=== PATIENT | female | born 1970 | race Caucasian/White ===

== ENCOUNTER 2016-04-24 19:51 | Emergency (ER) | payer BC ==
--- NOTE | 2016-04-24 19:52 | UC ---
Abdominal Pain Female HPI - HPI Summary HPI Summary: Not feeling well for several days, took amoxicillin for strep. Then a few days ago started with left low back pain. Today started with deep LLQ pain, cramping. No vomiting, no fever. Had a normal BM today, no blood in the stool. No urinary sxs. Pt with hx perforated diverticulum requiring 10 inches of bowel resected. Also s/p right oophorectomy and laminectomy and lap vira. Had recent colonoscopy with no areas identified as needing resection. Was advised by Dr. Carr whenever she feels that her diverticulitis is flaring, to get evaluated. - History of Current Complaint Stated Complaint: ABDOMINAL PAIN Time Seen by Provider: 04/24/16 19:51 Hx Obtained From: Patient, Family/Jewel Stringer - Hx Last Menstrual Period: 04/18/16 ?: No Onset/Duration: Gradual Onset, Lasting Days, Still Present Severity Initially: Moderate Severity Currently: Moderate Pain Intensity: 7 Pain Scale Used: 0-10 Numeric Location: Discrete At: LLQ Radiates: Yes Radiates to: Back Character: Cramping Aggravating Factor(s): Nothing Alleviating Factor(s): Nothing Associated Signs and Symptoms: Negative: Fever, Constipation, Blood in Stool, Urinary Symptoms, Nausea, Vomiting, Diarrhea Allergies/Adverse Reactions: Allergies Allergy/AdvReac Type Severity Reaction Status Date / Time Morphine AdvReac Severe Nausea And Verified 04/24/16 20:19 Vomiting Home Medications: Home Medications [id number] [Excedrin Extra Strength] 1 tab PO Q4H PRN [History Confirmed 04/24/16] PMH/Surg Hx/FS Hx/Imm Hx Endocrine History Of: Denies: Diabetes, Thyroid Disease Cardiovascular History Of: Denies: Cardiac Disorders, Hypertension, Pacemaker/ICD, Congestive Heart Failure Respiratory History Of: Reports: Asthma Denies: COPD GI/ History Of: Denies: Ulcer, Renal Disease Cancer History Of: Denies: Breast Cancer - Surgical History Surgical History: Yes Surgery Procedure, Year, and Place: RT OOPHERECTOMY. ILEOSTOMY reversed 01/06/13 ,BOWEL RESECTION 09/2012/LAP [facility]IR[facility]. microdiscectomy 01/17/2014 - Family History Known Family History: Negative: Respiratory Disease - Social History Occupation: Employed Full-time Lives: With Family Alcohol Use: Rare Substance Use Type: None Smoking Status (MU): Former Smoker Type: Cigarettes Amount Used/How Often: 1/2 PACK PER DAY Length of Time of Smoking/Using Tobacco: 5 YEARS Have You Smoked in the Last Year: No When Did the Patient Quit Smoking/Using Tobacco: 1994 - Immunization History Most Recent Influenza Vaccination: 2013 Most Recent Tetanus Shot: unknown Most Recent Pneumonia Vaccination: unknown Review of Systems Constitutional: Negative Skin: Negative Gastrointestinal: Abdominal Pain Genitourinary: Negative Musculoskeletal: Other: - left low back pain Neurological: Headache - this am, better now All Other Systems Reviewed And Are Negative: Yes Physical Exam Triage Information Reviewed: Yes Appearance: Well-Nourished, Ill-Appearing, Pain Distress Vital Signs Reviewed: Yes Eyes: Positive: Conjunctiva Clear ENT: Positive: Hearing grossly normal. Negative: Muffled/hoarse voice Neck: Positive: Supple Respiratory: Positive: No respiratory distress Cardiovascular: Positive: RRR, Pulses Normal, Brisk Capillary Refill Abdomen Description: Positive: No Organomegaly, Soft, Other: - tender LLQ and suprapubin. Negative: CVA Tenderness (R), CVA Tenderness (L), Distended, Guarding, Hepatomegaly, McBurney's Point Tenderness, Peritoneal Signs, Pulsatile Mass, Splenomegaly Bowel Sounds: Positive: Present Musculoskeletal: Positive: Strength Intact, ROM Intact Neurological: Positive: Alert, Muscle Tone Normal Psychological Exam: Normal Skin Exam: Normal Abd Pain Female Course/Dx - Course Course Of Treatment: discussed with pt and her . CT not available. Will start empiric therapy based on clinical diagnosis of diverticulitis, which is most consistent with pt's current and past hx. Pt will follow up with Dr. Carr if no improvement. She will go to the ED for any acute worsening. - Differential Dx/Diagnosis Differential Diagnosis: Bowel Obstruction, Constipation, Diverticulitis, Renal Colic Provider Diagnoses: abdominal pain. acute diverticulitis Discharge - Discharge Plan Condition: Stable Disposition: HOME Prescriptions: Ciprofloxacin TAB* [Cipro 500 MG TAB*] 500 mg PO BID #20 tab HYDROcodone/ACETAMIN 5-325 MG* [[place] 5-325 TAB*] 1 tab PO Q4H PRN #18 tab MDD 6 PRN Reason: Pain Metronidazole [Flagyl 500 MG TAB] 500 mg PO QID #40 tab Ondansetron ODT TAB* [Zofran 4 MG Odt TAB*] 4 mg PO Q6H PRN #20 tab.odt PRN Reason: Nausea Patient Education Materials: Diverticulitis (ED), Diverticulitis Diet (ED) Referrals: Yasmani Mathias DO [Primary Care Provider] - 2 Days Chito Carr MD [Medical Doctor] - 2 Days
[2016-04-24] MEDS ORDERED: Ciprofloxacin TAB* 500 MG PO ONE (20:45)
[2016-04-24] MEDS ORDERED: metroNIDAZOLE TAB* 250 MG PO ONE (20:45)
[2016-04-24] MEDS ORDERED: HYDROcodone/ACETAMIN 5-325 MG* 1 TAB PO ONE (20:46)
[2016-04-24 20:56] VITALS: BP 123/74
== END 2016-04-24 21:12 | disposition home or self-care (01) ==
LOC: UCCORT 19:51
DX: K57.92 Diverticulitis of intestine, part unspecified, without perforation or abscess without bleeding (principal); R10.32 Left lower quadrant pain; Z88.5 Allergy status to narcotic agent; Z87.891 Personal history of nicotine dependence
CPT/HCPCS: 99213; A9270-GY; G0463

== ENCOUNTER 2016-09-05 18:17 | Emergency (ER) | payer BC ==
[2016-09-05 19:33] VITALS: BP 106/69
--- NOTE | 2016-09-05 19:39 | UC ---
Complaint Female HPI - HPI Summary HPI Summary: Onset of bladder spasm and back pain 3 days ago, prompting use of cranberry/ mannose drink and high fluid intake. Developed a fever and myalgias yesterday, with increased back pain. Has taken 4 doses of macrodantin since Tuesday evening , from old rx from 2014. - History Of Current Complaint Chief Complaint: UCGU Stated Complaint: URINARY/FEVER Time Seen by Provider: 09/05/16 19:38 Hx Obtained From: Patient, Family/Mangle Press Catcher - here with her Hx Last Menstrual Period: 08/29/16 ?: No Onset/Duration: Gradual Onset, Lasting Days - 4 Timing: Intermittent, Lasting Hours - recurrent fever and myalgias and nausea. Severity Initially: Moderate Severity Currently: Moderate Character: Burning Aggravating Factor(s): Urination Alleviating Factor(s): Meds - ibuprofen helps with fever and myalgias Associated Signs And Symptoms: Positive: Back Pain Related Hx: Similar Episode/Dx as: - UTI - Risk Factors Ectopic Risk Factor: Negative Ovarian Torsion Risk Factor: Negative - Allergies/Home Medications Allergies/Adverse Reactions: Allergies Allergy/AdvReac Type Severity Reaction Status Date / Time Morphine AdvReac Severe Nausea And Verified 09/05/16 19:15 Vomiting Home Medications: Home Medications Acetaminophen TAB* [Tylenol TAB*] 650 mg PO Q4H PRN 09/05/16 [History Confirmed 09/05/16] Ibuprofen TAB* [Motrin TAB* 600 MG] 600 mg PO Q6H PRN 09/05/16 [History Confirmed 09/05/16] LevoCETirizine TAB (NF) [Xyzal TAB (NF)] 5 mg PO BEDTIME 09/05/16 [History Confirmed 09/05/16] Nitrofurantoin Macrocrystals* [Macrodantin*] 100 mg PO BID 09/05/16 [History Confirmed 09/05/16] PMH/Surg Hx/FS Hx/Imm Hx Previously Healthy: Yes - environmental allergies - Surgical History Surgical History: Yes Surgery Procedure, Year, and Place: RT OOPHERECTOMY. BOWEL RESECTION w/ ilectomy 09/2012, reversal 12/2012 , LAP YORDY. microdiscectomy 01/17/2014 - Family History Known Family History: Positive: Other - father of pancreatic cancer Mother living and healthy Negative: Respiratory Disease - Social History Occupation: Employed Full-time Lives: With Family Alcohol Use: Rare Substance Use Type: None Smoking Status (MU): Former Smoker Type: Cigarettes Amount Used/How Often: 1/2 PACK PER DAY Length of Time of Smoking/Using Tobacco: 5 YEARS Have You Smoked in the Last Year: No When Did the Patient Quit Smoking/Using Tobacco: 1994 - Immunization History Most Recent Influenza Vaccination: 2013 Most Recent Tetanus Shot: unknown Most Recent Pneumonia Vaccination: unknown Review of Systems Constitutional: Fever, Fatigue Skin: Negative Eyes: Negative ENT: Other - allergies controlled with xyzal Respiratory: Negative Cardiovascular: Negative Gastrointestinal: Other - normal stools, no abdominal pain Genitourinary: Dysuria, Urgency, Other - bladder spasms Motor: Negative Neurovascular: Negative Musculoskeletal: Myalgia, Other: - back pain Neurological: Negative Psychological: Negative All Other Systems Reviewed And Are Negative: Yes Physical Exam Triage Information Reviewed: Yes Appearance: Ill-Appearing, Pain Distress - mild Vital Signs: Initial Vital Signs Temp 100.0 F 09/05/16 19:17 Pulse 93 09/05/16 19:17 Resp 16 09/05/16 19:17 BP 106/69 09/05/16 19:17 Pulse Ox 99 09/05/16 19:17 Vital Signs Reviewed: Yes ENT: Positive: Pharynx normal, TMs normal Neck: Positive: Supple, Nontender, No Lymphadenopathy Respiratory: Positive: Lungs clear, Normal breath sounds Cardiovascular: Positive: RRR, No Murmur Abdomen Description: Positive: Nontender, No Organomegaly, CVA Tenderness (R), CVA Tenderness (L) - bilateral mild Musculoskeletal Exam: Normal Neurological: Positive: Alert, Muscle Tone Normal Psychological Exam: Normal Skin Exam: Normal Diagnostics - Laboratory Diagnostic Studies Completed/Ordered: UA esterase positive (has been taking antibiotics) Complaint Female Dx - Course Course Of Treatment: bactrim for treatment of UTI, suspected pyelonephritis - Differential Dx/Diagnosis Provider Diagnoses: UTI, possible pylenephritis. Discharge - Discharge Plan Condition: Stable Disposition: HOME Prescriptions: Sulfamethox/Trimethoprim DS* [Bactrim DS 800/160 TAB*] 1 tab PO BID #14 tab Patient Education Materials: Urinary Tract Infection in Women (ED) Referrals: Yasmani Mathias DO [Primary Care Provider] - Additional Instructions: If fever persists after 24 to 36 hours of antibiotic use, a change of antibiotics might be needed. Urine culture results will be available Tuesday afternoon or Tuesday.
[2016-09-05] MEDS ORDERED: Sulfamethox/Trimethoprim DS 800/160* TAB PO ONE ×2 (19:58→19:59)
== END 2016-09-05 20:14 | disposition home or self-care (01) ==
LOC: UCCORT 18:17
DX: N39.0 Urinary tract infection, site not specified (principal); Z87.440 Personal history of urinary (tract) infections; Z88.5 Allergy status to narcotic agent; Z87.891 Personal history of nicotine dependence
CPT/HCPCS: 81003; 87086; 99212; A9270-GY; G0463

== ENCOUNTER 2016-11-22 09:22 | Emergency (ER) | payer BC ==
--- NOTE | 2016-11-22 09:33 | UC ---
Complaint Female HPI - HPI Summary HPI Summary: 46 YEAR OLD FEMALE PRESENTS WITH [id number] OF URINARY FREQUENCY/URGENCY AND BURNING. - History Of Current Complaint Stated Complaint: URINARY Time Seen by Provider: 11/22/16 09:33 Hx Obtained From: Patient Hx Last Menstrual Period: 08/29/16 Onset/Duration: Sudden Onset Severity Initially: Moderate Severity Currently: Moderate - Allergies/Home Medications Allergies/Adverse Reactions: Allergies Allergy/AdvReac Type Severity Reaction Status Date / Time Morphine AdvReac Severe Nausea And Verified 11/22/16 09:40 Vomiting PMH/Surg Hx/FS Hx/Imm Hx Previously Healthy: Yes - Surgical History Surgical History: Yes Surgery Procedure, Year, and Place: RT OOPHERECTOMY. BOWEL RESECTION w/ ilectomy 09/2012, reversal 12/2012 , LAP YORDY. microdiscectomy 01/17/2014 - Family History Known Family History: Positive: None, Other - father of pancreatic cancer Mother living and healthy Negative: Respiratory Disease - Social History Alcohol Use: Rare Substance Use Type: None Smoking Status (MU): Former Smoker Type: Cigarettes Amount Used/How Often: 1/2 PACK PER DAY Length of Time of Smoking/Using Tobacco: 5 YEARS Have You Smoked in the Last Year: No When Did the Patient Quit Smoking/Using Tobacco: 1994 - Immunization History Most Recent Influenza Vaccination: 2013 Most Recent Tetanus Shot: unknown Most Recent Pneumonia Vaccination: unknown Review of Systems Constitutional: Negative Skin: Negative Eyes: Negative ENT: Negative Respiratory: Negative Cardiovascular: Negative Gastrointestinal: Negative Genitourinary: Negative, Frequency, Urgency Motor: Negative Neurovascular: Negative Musculoskeletal: Negative Neurological: Negative Psychological: Negative All Other Systems Reviewed And Are Negative: Yes Physical Exam Triage Information Reviewed: Yes Vital Signs Reviewed: Yes Eye Exam: Normal ENT Exam: Normal Dental Exam: Normal Neck exam: Normal Neck: Positive: 1 Respiratory Exam: Normal Cardiovascular Exam: Normal Abdominal Exam: Normal Musculoskeletal Exam: Normal Neurological Exam: Normal Psychological Exam: Normal Skin Exam: Normal Complaint Female Dx - Differential Dx/Diagnosis Provider Diagnoses: DYSURIA. URINARY FREQUNECY. URINARY URGENCY Discharge - Discharge Plan Condition: Stable Disposition: HOME Prescriptions: Sulfamethox/Trimethoprim DS* [Bactrim DS 800/160 TAB*] 1 tab PO BID #10 tab Patient Education Materials: Urinary Tract Infection in Women (ED) Referrals: Yasmani Mathias DO [Primary Care Provider] -
[2016-11-22 09:40] VITALS: BP 112/67
--- NOTE | 2016-11-25 08:07 | UC ---
Progress - Progress Note Progress Note: (+) UTI -- resistant to bactrim sensitive to macrobid -- start at this time sent to pharmacy recheck with PCP in 2 weeks
== END 2016-11-22 10:01 | disposition home or self-care (01) ==
LOC: UCCORT 09:22
DX: N39.0 Urinary tract infection, site not specified (principal); Z88.5 Allergy status to narcotic agent; Z87.891 Personal history of nicotine dependence
CPT/HCPCS: 81003; 87077; 87086; 87186; 99212; G0463

== ENCOUNTER → 2016-11-27 08:40 | Emergency (ER) | payer BC ==
[~2016-11-27 08:40] MED LIST: Acetaminophen TAB* 325 MG PO ONE; Ketorolac INJ* 30 MG/ML 1 ML VIAL IV ONE; Ketorolac INJ* 30 MG/ML 1 ML VIAL ONE; NS 0.9% 1000 ML* 1,000 ML IV ONE; Ondansetron INJ* 2 MG/ML VIAL IV ONE; Ondansetron INJ* 2 MG/ML VIAL ONE; cefTRIAXone VIAL(*) 1,000 MG in NS 0.9% 50 ML* 50 ML IVPB ONE
[2016-11-27 09:02] LABS: Urine Bilirubin Negative (Negative); Urine Glucose Negative (Negative); Urine Nitrite Negative (Negative)
[2016-11-27 09:45] LABS: Hematocrit 39 % (35-47); Hemoglobin 13.6 g/dl (12.0-16.0); Mean Corpuscular HGB Conc 35 g/dl (31-36); Mean Corpuscular Hemoglobin 31 pg (27-31); Mean Corpuscular Volume 90 fL (80-97); Mean Platelet Volume 8 um3 (7.4-10.4); Red Blood Count 4.36 10^6/ul (4.0-5.4); Red Cell Distribution Width 13 % (10.5-15); White Blood Count 9.8 10^3/ul (3.5-10.8)
--- NOTE | 2016-11-27 10:04 | RAD ---
CLINICAL HISTORY: Left flank pain. Relevant surgical history includes right oopherectomy, bowel resection and cholecystectomy. COMPARISON: Most recent comparison CT is dated April 21, 2012 TECHNIQUE: Noncontrast CT examination of the abdomen and pelvis from the lung bases through the initial tuberosities. FINDINGS: VISUALIZED LUNG BASES: The visualized lung bases are grossly clear. There is no pleural effusion. ABDOMEN AND PELVIS: Evaluation of the solid organs and vasculature is limited without intravenous contrast. The liver, spleen, pancreas and adrenal glands are grossly normal in appearance. The gallbladder is surgically absent. The kidneys are normal in appearance without focal mass, calcification or signs of hydronephrosis. The small and large bowel are not distended.The patient's normal appendix is identified in the right lower quadrant with gas in the lumen measuring 5 mm in diameter (coronal image 45). There are diverticula throughout the length of the colon but no definite wall thickening or pericolonic inflammatory changes characteristic of acute diverticulitis. There is no gross retroperitoneal or mesenteric lymphadenopathy. At the left hemipelvis there is a 3.4 cm fluid density structure most consistent with a follicle in a woman of this age. The abdominal aorta and iliac arteries are normal in course and diameter. There are no sinister bone lesions. IMPRESSION: 1. No renal calculi or hydronephrosis identified. 2. Diverticulosis without acute inflammatory changes characteristic of diverticulitis (within the limitations of a noncontrast enhanced CT examination). 3. At the left hemipelvis there is a 3.4 cm fluid density structure most consistent with a dominant ovarian follicle in a premenopausal woman. Further characterization could be made with pelvic ultrasound if clinically warranted.
[2016-11-27 10:10] LABS: ALT 209 U/L (7-52); AST 221 U/L (13-39); Alkaline Phosphatase 92 U/L (34-104); Anion Gap 7 mmol/L (2-11); BUN/Creatinine Ratio 14.8 (8-20); Blood Urea Nitrogen 9 mg/dL (6-24); C Reactive Protein 61.89 mg/L (< 5.00); CO2 Carbon Dioxide 22 mmol/L (22-32); Calcium 8.9 mg/dL (8.6-10.3); Chloride 103 mmol/L (101-111); EGFR Non-African American 106.5 (>60); Globulin 2.7 g/dL (2-4); Glucose 108 mg/dL (70-100); Lipase 33 U/L (11.0-82.0); Potassium 3.6 mmol/L (3.5-5.0); Sodium 132 mmol/L (133-145); Total Protein 6.7 g/dL (6.4-8.9)
[2016-11-27 10:57] VITALS: BP 106/64
--- NOTE | 2016-11-28 08:26 | ED ---
Sandeep José Nikita, scribed for Austin Boone MD on 11/27/16 at 0912 . Complex/Multi-Sys Presentation - HPI Summary HPI Summary: This patient is a 46 year old F presenting to ED with a chief complaint of multiple symptoms since 11/21/16. Pt went to Urgent Care and was given Bactrum. 2 days ago, pt felt horrible but felt improved yesterday. The CC is described as constant but waxing and waning and feeling spasmy during urination (during onset). The patient rates the pain 6/10 in severity. Symptoms aggravated by nothing. Symptoms alleviated by nothing. Patient reports nausea, vomiting, shaking, chills, her "skin hurts", groin pain, L-sided back pain, fever, and diarrhea. - History Of Current Complaint Chief Complaint: EDFever Time Seen by Provider: 11/27/16 08:47 Hx Obtained From: Patient Onset/Duration: Sudden Onset, Lasting Days - 6 days ago, Still Present Timing: Constant - waxing and waning Severity Currently: Moderate Severity Initially: Moderate Location: Pain At: - L-sided back pain, groin pain Aggravating Factor(s): nothing Alleviating Factor(s): nothing Associated Signs And Symptoms: Positive: Other - Patient reports nausea, vomiting, shaking, chills, her "skin hurts", groin pain, L-sided back pain, fever, and diarrhea. - Allergies/Home Medications Allergies/Adverse Reactions: Allergies Allergy/AdvReac Type Severity Reaction Status Date / Time Morphine AdvReac Severe Nausea And Verified 11/22/16 09:40 Vomiting PMH/Surg Hx/FS Hx/Imm Hx Endocrine/Hematology History: Denies: Hx Diabetes, Hx Systemic Lupus Erythematosus, Hx Thyroid Disease Cardiovascular History: Denies: Hx Congestive Heart Failure, Hx Hypertension, Hx Pacemaker/ICD Respiratory History: Reports: Hx Asthma Denies: Hx Chronic Obstructive Pulmonary Disease (COPD) GI History: Reports: Other GI Disorders - DIVERTICULITIS Denies: Hx Ulcer History: Reports: Other Problems/Disorders - HX OF UTI'S W/NO REOCCURANCE IN YEARS Denies: Hx Dialysis, Hx Renal Disease Musculoskeletal History: Reports: Hx Back Problems Denies: Hx Rheumatoid Arthritis Sensory History: Reports: Hx Contacts or Glasses Denies: Hx Hearing Aid Opthamlomology History: Reports: Hx Contacts or Glasses Neurological History: Reports: Other Neuro Impairments/Disorders - PAIN CLINIC PT Psychiatric History: Denies: Hx Panic Disorder - Cancer History Hx Chemotherapy: No Hx Radiation Therapy: No - Surgical History Surgery Procedure, Year, and Place: RT OOPHERECTOMY. BOWEL RESECTION w/ ilectomy 09/2012, reversal 12/2012 , LAP YORDY. microdiscectomy 01/17/2014 Hx Anesthesia Reactions: No Infectious Disease History: No Infectious Disease History: Reports: Hx Shingles Denies: Hx Clostridium Difficile, Hx Hepatitis, Hx Human Immunodeficiency Virus (HIV), Hx of Known/Suspected MRSA, Hx Tuberculosis, Hx Known/Suspected VRE , Hx Known/Suspected VRSA, History Other Infectious Disease, Traveled Outside the [place] in Last 30 Days - Family History Known Family History: Positive: Other - father of pancreatic cancer Mother living and healthy Negative: Respiratory Disease - Social History Alcohol Use: Rare Hx Substance Use: No Substance Use Type: Reports: None Hx Tobacco Use: No Smoking Status (MU): Former Smoker Type: Cigarettes Amount Used/How Often: 1/2 PACK PER DAY Length of Time of Smoking/Using Tobacco: 5 YEARS Have You Smoked in the Last Year: No Review of Systems Positive: Fever, Chills, Other - shaking Positive: Vomiting, Diarrhea, Nausea Positive: Other - groin pain, L-sided back pain Positive: Other - her "skin hurts" All Other Systems Reviewed And Are Negative: Yes Physical Exam - Summary Physical Exam Summary: GENERAL: Patient is a well-developed and dehydrated FEMALE who is lying comfortable in the stretcher. Patient is not in any acute respiratory distress. Pt is febrile. HEAD AND FACE: No signs of trauma. ~No ecchymosis, hematomas or skull depressions. No sinus tenderness. EYES: PERRLA, EOMI x 2, No injected conjunctiva, no nystagmus. EARS: Hearing grossly intact. Ear canals and tympanic membranes are within normal limits. MOUTH: Oropharynx within normal limits. NECK: Supple, trachea is midline, no adenopathy, no JVD, no carotid bruit, no c- spine tenderness, neck with full ROM. CHEST: Symmetric, no tenderness at palpation LUNGS: Clear to auscultation bilaterally. No wheezing or crackles. CVS: Regular rate and rhythm, S1 and S2 present, no murmurs or gallops appreciated. ABDOMEN: Soft, non-tender. No signs of distention. No rebound no guarding, and no masses palpated. Bowel sounds are normal. Positive left CVA tenderness. EXTREMITIES: FROM in all major joints, no edema, no cyanosis or clubbing. NEURO: Alert and oriented x 3. No acute neurological deficits. Speech is normal and follows commands. SKIN: Dry and warm Triage Information Reviewed: Yes Vital Signs On Initial Exam: Initial Vitals Temp Pulse Resp BP Pulse Ox 98.9 F 112 20 126/74 98 11/27/16 08:46 11/27/16 08:46 11/27/16 08:46 11/27/16 08:46 11/27/16 08:46 Vital Signs Reviewed: Yes - [place] Coma Scale Coma Scale Total: 15 Diagnostics - Vital Signs Vital Signs Temp Pulse Resp BP Pulse Ox 11/27/16 08:46 98.9 F 112 20 126/74 98 - Laboratory Lab Results: Lab Results 11/27/16 Range/Units 08:50 Urine Color Yellow Urine Appearance Clear Urine pH 5.0 (5-9) Ur Specific [place] 1.016 (1.010-1.030) Urine Protein Negative (Negative) Urine Ketones Negative (Negative) Urine Blood Negative (Negative) Urine Nitrate Negative (Negative) Urine Bilirubin Negative (Negative) Urine Urobilinogen Negative (Negative) Ur Leukocyte Esterase Negative (Negative) Urine Glucose Negative (Negative) Result Diagrams: 11/27/16 09:30 11/27/16 09:30 Lab Statement: Any lab studies that have been ordered have been reviewed, and results considered in the medical decision making process. - CT Abd/Pel CT CT Interpretation Completed By: Radiologist - 1. No renal calculi or hydronephrosis identified. 2. Diverticulosis without acute inflammatory changes characteristic of diverticulitis (within the limitations of a noncontrast enhanced CT examination). 3. At the left hemipelvis there is a 3.4 cm fluid density structure most consistent with a dominant ovarian follicle in a premenopausal woman. Further characterization could be made with pelvic ultrasound if clinically warranted. ED physician has reviewed this radiology report and agrees. Re-Evaluation - Re-Evaluation First Eval Re-Evaluation Time: 11:31 Change: Improved Comment: The pt feels better; has no pain or nausea. Pt is hungry. Discussed with pt about discharge plan. Complex Multi-Symp Course/Dx Assessment/Plan: This patient is a 46 year old F presenting to ED with a chief complaint of multiple symptoms since 11/21/16. Pt went to Urgent Care and was given Bactrum. 2 days ago, pt felt horrible but felt improved yesterday. The CC is described as constant but waxing and waning and feeling spasmy during urination (during onset). The patient rates the pain 6/10 in severity. Symptoms aggravated by nothing. Symptoms alleviated by nothing. Patient reports nausea, vomiting, shaking, chills, her skin hurts, groin pain, L-sided back pain, fever, and diarrhea. Abd/Pel CT reveals 1. No renal calculi or hydronephrosis identified. 2. Diverticulosis without acute inflammatory changes characteristic of diverticulitis (within the limitations of a noncontrast enhanced CT examination). 3. At the left hemipelvis there is a 3.4 cm fluid density structure most consistent with a dominant ovarian follicle in a premenopausal woman. Further characterization could be made with pelvic ultrasound if clinically warranted. ED physician has reviewed this radiology report and agrees. Blood work is without significant abnormalities except sodium of 132, AST of 221, ALT of 209, and CRP of 61. Urinalysis is negative for UTI. In the ED course pt was given IV fluids. Pt was given toradol for fever, and rocephin since the pt has been dealing with a urine infection. I the ED the pt did not show a UTI because the pt has been talking bactrum and nitrofurantoin. I believe that the pts elevated LFT are secondary to bactrum. However the pt is not taking bactrum any longer. So we will follow up with PCP to check for improvement of LFTs. I did an abdominal/pelvic CT to rule out kidney stones since the pt was having L flank pain. CT is negative for a kidney stone. These medications are taken for sensitivities. The pt is sensitive for rocephin, other IV medications, nitrofurantoin, so the best medication will be Alimentum. Therefore, since the pt is feeling better, I will discharge the pt with Alimentum and f/u with PCP. The pt is hemodynamically stable, alert and oriented x3. She was advised to return to the ED if she develops fever, N/V, increased abdominal or flank pain. We will have to rule out pyelonephritis. Also , she was strongly advised to f/u with PCP for increased liver function test. - Diagnoses Differential Diagnoses/HQI/PQRI: Urinary Tract Infection, Other - Kidney stone, Diverticulitis, pancreatitis Provider Diagnoses: UTI (urinary tract infection) Discharge - Discharge Plan Condition: Stable Disposition: HOME Prescriptions: Amoxicillin/Clavulanate TAB* [Augmentin TAB 875*] 875 mg PO BID #20 tab Patient Education Materials: Urinary Tract Infection in Women (ED) Referrals: Yasmani Mathias DO [Primary Care Provider] - 3 Days The documentation as recorded by the Sandeep oh Nikita accurately reflects the service I personally performed and the decisions made by , Austin Boone MD.
== END | disposition home or self-care (01) ==
LOC: ED 08:40
DX: N39.0 Urinary tract infection, site not specified (principal); Z32.02 Encounter for pregnancy test, result negative; R11.2 Nausea with vomiting, unspecified; R25.1 Tremor, unspecified; R50.9 Fever, unspecified; R19.7 Diarrhea, unspecified; J45.909 Unspecified asthma, uncomplicated; Z87.440 Personal history of urinary (tract) infections; Z88.5 Allergy status to narcotic agent; Z87.891 Personal history of nicotine dependence
CPT/HCPCS: 36415; 74176; 80053; 81003; 83605; 83690; 84702; 85025; 86140; 87040; 96365; 96375; 99282; A9270-GY; J0696; J1885; J2405

== ENCOUNTER 2017-03-08 16:17 | Emergency (ER) | payer BC ==
[2017-03-08 17:57] VITALS: BP 111/83
--- NOTE | 2017-03-08 18:51 | UC ---
Skin Complaint HPI - HPI Summary HPI Summary: 46 y/o female present to the urgent care c/o rash in her Rt rib area, under her breasr and around mid back taht itches and tingle sensation w/ mild pain since . Pt reports she just recovered from flu like symptoms that ended last week. Pain is 7/10. Pt denies fever, SOB, chest pain, abdominal pain, N/V/D. She has not taking anything to alleviate symptoms. - History of Current Complaint Chief Complaint: UCSkin Time Seen by Provider: 03/08/17 18:36 Stated Complaint: SKIN COMPLAINT Hx Obtained From: Patient Hx Last Menstrual Period: 02/07/17 ?: No Onset/Duration: Gradual Onset, Lasting Days - 2 days, Still Present Skin Exposure Onset/Duration: Days Ago - 2 days Timing: Constant Onset Severity: Mild Current Severity: Moderate Pain Intensity: 7 Pain Scale Used: 0-10 Numeric Location: Discrete - mid lateral side of back Character: Pruritus, Redness, Painful Aggravating Factor(s): Touch Alleviating Factor(s): Nothing Associated Signs & Symptoms: Positive: Tenderness. Negative: Nausea, Vomiting, Numbness, Fever, Chills Similar Episode/Dx as: shingles - Allergy/Home Medications Allergies/Adverse Reactions: Allergies Allergy/AdvReac Type Severity Reaction Status Date / Time MS Morphine [Morphine] AdvReac Severe Nausea And Verified 11/22/16 09:40 Vomiting Review of Systems Constitutional: Negative Skin: Rash - mid lateral side of back and under breast, Other - itchiness Eyes: Negative ENT: Negative Respiratory: Negative Cardiovascular: Negative Gastrointestinal: Negative Genitourinary: Negative Motor: Negative Neurovascular: Negative Musculoskeletal: Negative Neurological: Negative Psychological: Negative Is Patient Immunocompromised?: No All Other Systems Reviewed And Are Negative: Yes PMH/Surg Hx/FS Hx/Imm Hx Previously Healthy: Yes Respiratory History: Asthma - Surgical History Surgical History: Yes Surgery Procedure, Year, and Place: RT OOPHERECTOMY. BOWEL RESECTION w/ ilectomy 09/2012, reversal 12/2012 , LAP YORDY. microdiscectomy 01/17/2014 - Family History Known Family History: Positive: None Negative: Respiratory Disease Family History: Pancreatic cancer - Social History Occupation: Employed Full-time Lives: With Family Alcohol Use: Rare Substance Use Type: None Smoking Status (MU): Former Smoker Type: Cigarettes Amount Used/How Often: 1/2 PACK PER DAY Length of Time of Smoking/Using Tobacco: 5 YEARS Have You Smoked in the Last Year: No When Did the Patient Quit Smoking/Using Tobacco: 1994 - Immunization History Most Recent Influenza Vaccination: 2013 Most Recent Tetanus Shot: unknown Most Recent Pneumonia Vaccination: unknown Physical Exam Triage Information Reviewed: Yes Vital Signs: Initial Vital Signs Temp 97.4 F 03/08/17 17:52 Pulse 79 03/08/17 17:52 Resp 15 03/08/17 17:52 BP 111/83 03/08/17 17:52 Pulse Ox 100 03/08/17 17:52 - Additional Comments Vital Signs Reviewed: Yes General: well developed, well nourished female sitting in the examining table w/ o any apparent distress Eye Exam: Normal Eyes: Positive: Conjunctiva Clear - PERRLA, EOMI, fundi grossly normal ENT: Positive: Normal ENT inspection, Hearing grossly normal, Pharynx normal, TMs normal Neck: Positive: Supple, Nontender, No Lymphadenopathy Respiratory: Positive: Chest non-tender, Lungs clear, Normal breath sounds, No respiratory distress Cardiovascular: Positive: RRR, No Murmur, Pulses Normal, Brisk Capillary Refill Abdomen Description: Positive: Nontender, No Organomegaly, Soft. Negative: CVA Tenderness (R), CVA Tenderness (L) Bowel Sounds: Positive: Present Musculoskeletal: Positive: Strength Intact, ROM Intact, No Edema Neurological: Positive: Alert, Muscle Tone Normal Psychological Exam: Normal Skin: Positive: rashes - Positive mild erythematous maculopapular eruption, some papule with clear vesicles. located in the mid lateral side of back in a dermatonal distribution and other papules under the Rt breast, mild tenderness to palpation, no swelling observed. Course/Dx - Course Course Of Treatment: 46 y/o female present to the urgent care c/o rash in her Rt rib area, under her breasr and around mid back taht itches and tingle sensation w/ mild pain since 03/06/2017. Pt reports she just recovered from flu like symptoms that ended last week. Pain is 7/10. Pt denies fever, SOB, chest pain, abdominal pain, N/V/D. She has not taking anything to alleviate symptoms.Hx obtained. Pt with Herpes Zoster on the mid lateral side of back on examination. Pt Rx valtrex and Ibuprofen PO to alleviate symptoms. Pt advised if not improvement or worsening of symptoms to return to the clinic or f/u with PCP for further treatment.PT understood and agreed with D/C instructions - Differential Diagnoses - Skin Complaint Differential Diagnoses: Allergic Reaction, Cellulitis, Contact Dermatitis, Eczema, Local Allergic Reaction, Varicella Zoster - Diagnoses Provider Diagnoses: 1- Hespes Zoster on RT side mid back Discharge - Discharge Plan Condition: Stable Disposition: HOME Prescriptions: Ibuprofen TAB* [Motrin TAB* 800 MG] 800 mg PO Q6H PRN #30 tab PRN Reason: Pain ValACYclovir (*) [Valtrex 1 GM(*)] 1 gm PO Q8HR #28 tab Patient Education Materials: Shingles (ED) Referrals: Yasmani Mathias DO [Primary Care Provider] - 3 Days Additional Instructions: 1- Please take the full course of the antiviral to avoid resistance. 2-Please take ibuprofen PO q6-8hrs prn as instructed after meals to alleviate pain and swelling. Increase fluid intake, eat well, rest and avoid strenuous exercise 3-If symptoms do not improve or worsen please return to the urgent care or f/u with your PCP for further evaluation and treatment.
== END 2017-03-08 19:09 | disposition home or self-care (01) ==
LOC: UCCORT 16:17
DX: B02.9 Zoster without complications (principal); J45.909 Unspecified asthma, uncomplicated; Z90.721 Acquired absence of ovaries, unilateral; Z90.49 Acquired absence of other specified parts of digestive tract; Z88.5 Allergy status to narcotic agent; Z87.891 Personal history of nicotine dependence
CPT/HCPCS: 99212; G0463

== ENCOUNTER 2017-04-11 08:51 | Emergency (ER) | payer BC ==
--- OUTSIDE RECORDS SUMMARY | 2017-04-11 09:48 | XMS REPORT ---
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 [facility] Address [address] [place] [address] Phone [phone] Care Team Providers Name Role Phone Cori Alvarez MD Care Team Information Liquid Loader Unavailable Payers Type Date Identification Numbers Payment Provider Subscriber Commercial Expires: Policy Number: Paulino HERMAN Harrison Castrejontonyradha 2011 [id number] [facility] Group Number: [id number] [address] PayID: [id number] [place] [address] Medigap Part B Effective: Policy Number: Paulino HERMAN Parisa Ruben 2011 [id number] [facility] Cashtonyradha Expires: 2015 PayID: [id number] [address] [place] [address] Medigap Part B Policy Number: Paulino HERMAN [place] Parisa Castrejontonyradha [id number] [place] PayID: [id number] [address] [address] [place] [address] Problems Date Description Provider Status Onset: 03/02/2013 Cyst of ovary Nimisha Shelby CNM Active Family History Date Family Member(s) Problem(s) Comments Father Pancreatic Cancer Father due to COPD () Mother Hypertension First Son A&W Second Son A&W Third Son A&W First Daughter A&W First Brother ADHD (Attention Deficit/Hyperactivity Disorder) First Sister A&W Paternal Grandfather due to NM () Paternal Grandmother due to Kidney Disease () Maternal Grandfather due to Unknown Causes () Maternal Grandmother due to Unknown Causes () Social History Type Date Description Comments Education Highest level of education completed is a master's degree Marital Status Patient is Living Situation Lives with spouse and children. 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 [employer] Cigarette Use Former cigarette smoker Alcohol Drinks alcohol occasionally Smoking Patient has never smoked Drug Use Denies drug use Daily Caffeine Drinks on average 1 cup of coffee a day Exercise Type/Frequency Exercises regularly Current Currently Active The patient is currently sexually active Contraceptive Methods Current methods of control used include vasectomy STD's No STD history Allergies, Adverse Reactions, Alerts Date Description Reaction Status Severity Comments 03/15/2006 NKDA active Medications Medication Date Status Form Strength Qnty SIG Indications Ordering Provider Lo Loestrin Fe 10/12/ Active Tablets 1mg-10 mcg 3pack take one Phaelon 2016 mcg s tab by MD Kim mouth daily Xyzal / Active Tablets 5mg 1 by Unknown 0000 mouth every day prn Levora 01/03/ Hx Tablets 0.15-30mg- 3pack take 1 po Phaelon 0.15/30-28 2012 - mcg s qd MD Kim 2013 Amoxicillin 08/15/ Hx Tablets 875mg 20tab 1 po bid An 2010 - s Artem, 08/25/ CNM 2010 Oxycodone/Acetam 08/15/ Hx Tablets 5-325mg 30tab one tab An inoeva 2010 - s po q6 hrs Artem, 09/05/ prn pain CNM 2010 Prenate 12/16/ Hx Capsules 28-0.6-0.4 90cap 1 po qd Lucita Essential 2009 - -340mg s Laura Alvarez, 08/16/ CNM 2013 Nitrofurantoin 11/14/ Hx Capsules 100mg 10cap take one Doreen M. Monohydrate 2009 - s pill each , 02/18/ morning M.D. 2010 and each evening for 5 days Ortho-Cyclen 06/18/ Hx Tablets 0.25-35mg- 28tab 1 po qd Lashawn (28) 2009 - mcg s Luis 09/07/ TABLET TESTER CNM 2009 Nyasia 11/18/ Hx Tablets 0.35mg 28tab 1 po qd Lashawn 2008 - s Luis 06/18/ TABLET TESTER, CNM 2009 Micronor 06/27/ Hx Tablets 0.35mg 1Pack 1 po qd An 2009 - Mcgill, 11/18/ CNM 2008 Albuterol 10/17/ Hx Aerosol 90mcg/Act 17gm 2 Puffs Q Lisette 2007 - 4HRS prn Mary, 12/03/ CNM 2012 Prenate Dha 08/15/ Hx Capsules 90cap one tab Lashawn 2007 - s PO daily Luis 08/16/ TABLET TESTER, CN 2012 Terazol 3 08/07/ Hx Cream 0.8% 1Box Use as Lashawn 2008 - Directed Luis 08/10/ For 3 TABLET TESTER, CNM 2007 Days Prenate Elite 03/22/ Hx Tablets 120mg;30 90tab 1 PO qd Lisette 2007 - mg;200 MG s Mary, 08/15/ CNM 2007 Keflex 05/01/ Hx Tablets 500mg 40tab 1 po qid Lisette 2006 - s Mary, 01/16/ CNM 2007 Advair HFA // Hx Unknown - 2012 Zyrtec Allergy / Hx Unknown - 2012 Flonase / Hx Suspension 50mcg/Act Unknown - 2012 Xyzal / Hx Tablets 5mg 30tab 1 po qd Unknown 0000 - s 2015 Singulair /00/ Hx Unknown - 2015 Dulera / Hx Aerosol 100/5 2 puffs Unknown 0000 - prn 2016 Prednisone / Hx Tablets 60mg mg 14tab Unknown 0000 - s 2015 Medications Administered in Office Medication Date Status Form Strength Qnty SIG Indications Ordering Provider PT SCRN Tbco Administered Injection Phaelon Id as Non User 018 MD Kim Injection Rho Administered Injection Nurses (D) Immune 011 Globulin, Human, One Dose Package Injection Rho Administered Injection Nurses (D) Immune 008 Globulin, Human, One Dose Package Injection Rho Administered Injection Rahul Jean (Wade) Immune 008 Dayana Cole Globulin, Human, One Dose Package Injection Rho Administered Injection Nurses (D) Immune 008 Globulin, Human, One Dose Package Injection Rho Administered Injection Dvora (Wade) Immune 003 Waqar Bueno M.D. Human, One Dose Package Vital Signs Date Vital Result Comment 04/05/2017 BP Systolic 108 mmHg BP Diastolic 68 mmHg Height 64 inches 5'4" Weight 141.00 lb BMI (Body Mass Index) 24.2 kg/m2 Last Menstrual Period [id number] 7 Parity 4 10/12/2016 BP Systolic 98 mmHg BP Diastolic 68 mmHg Height 64 inches 5'4" Weight 143.00 lb BMI (Body Mass Index) 24.5 kg/m2 Last Menstrual Period [id number] 7 Parity 4 06/30/2015 BP Systolic 108 mmHg BP Diastolic 72 mmHg Height 63.5 inches 5'3.50" Weight 134.00 lb BMI (Body Mass Index) 23.4 kg/m2 Last Menstrual Period [id number] 7 Parity 4 03/17/2015 BP Systolic 124 mmHg BP Diastolic 68 mmHg Height 63.5 inches 5'3.50" Weight 133.00 lb BMI (Body Mass Index) 23.2 kg/m2 Last Menstrual Period [id number] 7 Parity 4 06/04/2013 BP Systolic 108 mmHg BP Diastolic 74 mmHg Height 63.5 inches 5'3.50" Weight 129.00 lb BMI (Body Mass Index) 22.5 kg/m2 Last Menstrual Period [id number] 7 Parity 4 04/23/2013 BP Systolic 120 mmHg BP Diastolic 82 mmHg Height 63.5 inches 5'3.50" Weight 128.00 lb BMI (Body Mass Index) 22.3 kg/m2 Last Menstrual Period 8173283 7 Parity 4 02/14/2013 BP Systolic 116 mmHg BP Diastolic 72 mmHg Weight 132.00 lb Last Menstrual Period 0944862 7 Parity 4 01/03/2013 BP Systolic 110 mmHg BP Diastolic 66 mmHg Height 63.50 inches 5'3.50" Weight 128.00 lb BMI (Body Mass Index) 22.3 kg/m2 Last Menstrual Period 6639134 7 Parity 4 08/16/2012 BP Systolic 98 mmHg BP Diastolic 60 mmHg Height 63.50 inches 5'3.50" Weight 137.00 lb BMI (Body Mass Index) 23.9 kg/m2 7 Parity 4 10/18/2011 BP Systolic 108 mmHg BP Diastolic 70 mmHg Height 63.50 inches 5'3.50" Weight 153.00 lb BMI (Body Mass Index) 26.7 kg/m2 Last Menstrual Period 7082764 7 Parity 4 10/14/2010 BP Systolic 112 mmHg BP Diastolic 66 mmHg Height 63.5 inches 5'3.50" Weight 165.00 lb BMI (Body Mass Index) 28.8 kg/m2 03/06/2010 BP Systolic 106 mmHg BP Diastolic 68 mmHg Height 63.5 inches 5'3.50" Weight 165.00 lb BMI (Body Mass Index) 28.8 kg/m2 01/21/2010 BP Systolic 116 mmHg BP Diastolic 62 mmHg Height 63.5 inches 5'3.50" Weight 158.00 lb BMI (Body Mass Index) 27.5 kg/m2 Last Menstrual Period [id number] 12/16/2009 BP Systolic 100 mmHg BP Diastolic 56 mmHg Height 63.5 inches 5'3.50" Weight 156.00 lb BMI (Body Mass Index) 27.2 kg/m2 Last Menstrual Period 0 11/14/2009 BP Systolic 98 mmHg BP Diastolic 60 mmHg Height 63.5 inches 5'3.50" Weight 154.00 lb BMI (Body Mass Index) 26.8 kg/m2 Last Menstrual Period 8121565 6 Parity 3 12/16/2008 BP Systolic 100 mmHg BP Diastolic 52 mmHg Height 64 inches 5'4" Weight 157.00 lb BMI (Body Mass Index) 26.9 kg/m2 05/02/2008 BP Systolic 106 mmHg BP Diastolic 70 mmHg Height 64 inches 5'4" Weight 155.00 lb BMI (Body Mass Index) 26.6 kg/m2 08/16/2007 BP Systolic 102 mmHg BP Diastolic 62 mmHg Height 64 inches 5'4" Weight 155.00 lb BMI (Body Mass Index) 26.6 kg/m2 Last Menstrual Period 9230169 5 Parity 2 Results Test Date Test Result H/L Range Note Laboratory test finding 10/12/2016 Cytology SEE RESULT BELOW 1 Human Papilloma Virus Rna Negative Negative 2 Laboratory test finding 03/17/2015 Cytology SEE RESULT BELOW 3 Human Papilloma Virus Rna Negative Negative 4 Laboratory test finding 10/18/2011 Cytology <SEE 5 NOTE> Laboratory test finding 10/14/2010 TSH 1.15 MIU/ML 0.34-5.60 Thyroxine Free 0.87 ng/dL 0.61-1.24 Laboratory test finding 07/15/2010 Genital For GRP B Strep Only NG2 6, 7 Urine Culture & Sensitivi 06/03/2010 Urine Culture Sensitivi NG 8 Genital Culture 06/03/2010 Genital Culture YEAST 9, 10 Genital Culture NORMAL CORY 9, 11 Laboratory test finding 05/18/2010 Glucose 1 HR Post 104 mg/dL 70-160 Prandial Laboratory test finding 05/18/2010 Potassium 3.2 mmol/L Low 3.5-5.0 TSH 1.74 MIU/ML 0.34-5.60 Prental PNL No Urine 01/21/2010 Syphilis IgG NON-REACTIVE Nonreactive 12 Hepatitis B Surface Ag Nonreactive Nonreactive Rubella Screen IMMUNE Immune CBC With Electronic Diff 01/21/2010 White Blood Count 6.4 CUMM 4.8-10.8 Red Cell Count 4.10 CUMM Low 4.2-5.4 Hemoglobin 12.1 g/dL 12.0-16.0 Hematocrit 36 % 35-47 Mean Corpuscular Volume 87 um3 79-97 Mean Corpuscular Hemoglob 29 pg 27-31 Mean Corpuscular HGB Cone 34 g/dL 32-36 Redcell Distribution WDTH 16 % High 10.5-15 Platelet Count 180 CUMM 150-450 Mean Platelet Volume 8.3 um3 7.4-10.4 13 Vad 01/21/2010 Vad Final NONREACTIVE Nonreactive 14 Type & Screen 01/21/2010 Patient Blood Type O NEGATIVE Antibody Screen NEGATIVE Manual Differential 01/21/2010 Polysegmented Neutrophil 63 % 38-83 Band Neutrophil 2 % 0-8 Lymphocyte 25 % 25-47 Monocyte 9 % 0-13 Eosinophil 1 % 0-6 Absolute Neutrophil Count 4.1 Anisocytosis SLIGHT GC/Chlamydia Aptima 01/21/2010 Chlamydia Trachomatis Rna N 15 Laboratory test finding 01/21/2010 Cytology 16 <SEE NOTE> GC (N. Gonorrhoeae) Rna N 17 Urine Culture & 01/21/2010 Urine Culture SN1 18 Sensitivi Sensitivi Urine Culture & 11/14/2009 Urine Culture SN1 19 Sensitivi Sensitivi Laboratory test 12/16/2008 Cytology 20 finding <SEE NOTE> Laboratory test 02/23/2008 Genital For GRP B FINAL: NEGATIVE 21 finding Strep Only <SEE NOTE> Laboratory test 01/02/2008 Glucose 1 HR Post 103 mg/dL 70-160 finding Prandial Laboratory test 09/26/2007 Antibody Screen POSITIVE finding CBC With Electronic 09/26/2007 White Blood Count 8.1 CUMM 4.8-10.8 Diff Red Cell Count 4.13 CUMM Low 4.2-5.4 Hemoglobin 13.0 g/dL 12.0-16.0 Hematocrit 36 % 35-47 Mean Corpuscular Volume 87 um3 79-97 Mean Corpuscular Hemoglob 31 pg 27-31 Mean Corpuscular HGB Cone 36 g/dL 32-36 Redcell Distribution WDTH 14 % 10.5-15 Platelet Count 192 CUMM 150-450 Mean Platelet Volume 8.3 um3 7.4-10.4 Gran % 71.6 % 38-83 Lymph % 23.6 % 20-45 Mononuclear % 3.1 % 1-9 Eosinophil % 1.3 % 0-6 Basophil % 0.4 % 0-2 Abs Lymphs 1.9 1.0-4.8 Abs Mononuclear 0.3 0-0.8 Absolute Neutrophil Count 5.8 1.5-7.7 Abs Eosinophils 0.1 0-0.6 Abs Basophils 0 0-0.2 Laboratory test finding 09/26/2007 Antibody Identification ANTI-D, RHOGAM Abid Comment . 22 Anti D Rhogam Comment . 23 Direct Antiglobulin Test NEGATIVE 24 Chlamydia/GC Dna,Sda,Pap Vial 08/17/2007 Source GENITAL-CERVICAL C.Trachomatis Dna,Sda NOT DETECTED Not Detected 25 N.Gonorrhoeae Dna,Sda NOT DETECTED Not Detected 26 Laboratory test finding 08/16/2007 Urine Culture Sensitivi NF1 27 Laboratory test finding 08/16/2007 Hepatitis B Surface Ag NEGATIVE Negative RPR NON REACTIVE Nonreactive Rubella Screen IMMUNE Immune Vad 08/16/2007 Vad Final NONREACTIVE Nonreactive 28 Laboratory test 03/16/2006 Genital For GRP B FINAL: NEGATIVE 29 finding Strep Only <SEE NOTE> Laboratory test 01/28/2006 Glucose 1 HR Post 122 mg/dL 70-160 finding Prandial Laboratory test 01/24/2006 Abo/RH Type O NEGATIVE finding Antibody Screen NEGATIVE Glucose 1 HR Post Prandial 138 mg/dL 70-160 1 10/05/2005 Hepatitis B Surface Ag NEGATIVE Negative Rubella Screen IMMUNE Immune White Blood Count 10.1 CUMM 4.8-10.8 Abs Basophils 0 0-0.2 Abs Eosinophils 0.1 0-0.6 Absolute Neutrophil Count 6.9 1.5-7.7 Abs Lymphs 2.6 1.0-4.8 Abs Mononuclear 0.5 0-0.8 Basophil % 0.1 % 0-2 Hematocrit 40 % 35-47 Hemoglobin 13.5 g/dL 12.0-16.0 Eosinophil % 1.3 % 0-6 Gran % 68.3 % 38-83 Lymph % 25.2 % 20-45 Mean Corpuscular HGB Cone 34 g/dL 32-36 Mean Corpuscular Hemoglob 31 pg 27-31 Mean Corpuscular Volume 93 um3 79-97 Mean Platelet Volume 9.3 um3 7.4-10.4 Mononuclear % 5.1 % 1-9 Platelet Count 236 CUMM 150-450 Red Cell Count 4.32 CUMM 4.2-5.4 Redcell Distribution WDTH 13 % 10.5-15 RPR NON REACTIVE Nonreactive 1 TS 10/05/2005 Patient Blood Type O NEGATIVE Antibody Screen NEGATIVE Laboratory test finding 10/05/2005 Urine Culture NG 30 Sensitivi Vad 10/05/2005 Vad Final NONREACTIVE Nonreactive 31 Vad Form Received YES Nonreactive Laboratory test 10/05/2005 Cytology <SEE 32 finding NOTE> GC/ZHL On Thin Prep 10/05/2005 CHL On Thin Prep NEGATIVE Negative 33 Vial GC On Thin Prep Vial NEGATIVE Negative 34 CBC With Electronic Diff 11/25/2003 White Blood Count 7.8 CUMM 4.8-10.8 Abs Basophils 0 0-0.2 Abs Eosinophils 0.1 0-0.6 Abs Grans 4.7 1.5-7.7 Abs Lymphs 2.6 1.0-4.8 Abs Mononuclear 0.4 0-0.8 Basophil % 0.4 % 0-2 Hematocrit 41 % 35-47 Hemoglobin 14.1 g/dL 12.0-16.0 Eosinophil % 1.5 % 0-6 Gran % 60.3 % 38-83 Lymph % 33.1 % 20-45 Mean Corpuscular HGB Cone 34 g/dL 32-36 Mean Corpuscular Hemoglob 31 pg 27-31 Mean Corpuscular Volume 90 um3 79-97 Mean Platelet Volume 9.7 um3 7.4-10.4 Mononuclear % 4.7 % 1-9 Platelet Count 212 CUMM 150-450 Red Cell Count 4.55 CUMM 4.2-5.4 Redcell Distribution WDTH 13 % 10.5-15 Comp Metabolic Panel 11/25/2003 Anion Gap 7.0 mmol/L 2-11 35 Albumin/Globulin Ratio 1.4 1-3 Albumin 4.4 GM/DL 3.6-5.4 Alkaline Phosphatase 49 U/L 30-110 Alt (SGPT) 51 U/L 14-54 Ast (Sgot) 23 U/L 12-42 BUN 12 mg/dL 6-24 Calcium 9.3 mg/dL 8.7-10.2 Chloride 105 mmol/L 101-111 Co2 (Carbon Dioxide) 24.0 mmol/L 22-32 Creatinine 0.8 mg/dL 0.5-1.4 Globulin 3.1 GM/DL 2-4 Glucose 93 mg/dL 70-105 Potassium 4.2 mmol/L 3.5-5.0 Sodium 136 mmol/L 135-145 Bilirubin Total 0.6 mg/dL 0.4-1.5 Total Protein 7.5 GM/DL 6.2-8.1 BUN/Creatinine Ratio 15.0 8-20 Liver Function Panel 11/25/2003 Bilirubin Direct 0.1 mg/dL 0.1-0.5 Indirect Bilirubin 0.5 mg/dL 0.1-0.75 Renal Function Panel 11/25/2003 Phosphorus 3.5 mg/dL 2.4-4.7 Laboratory test finding 11/25/2003 FSH 3.11 MIU/ML 36 Lutenizing Hormone 9.7 MIU/ML 37 Prolactin 9.3 NG/ML 1.0-25.0 TSH 1.61 MIU/ML 0.34-5.60 Thyroxine Free 11/25/2003 Free Thyroxine 0.78 ng/dL 0.58-1.64 Lipid Profile 11/25/2003 Cholesterol/HDL Ratio 2.76 AVERAGE 1-4.44 (Trig/Chol/HDL) Cholesterol 182 mg/dL Less Than 200 38 Triglyceride 94 mg/dL 40-200 High Density Lipoprotein 66 mg/dL High 40-60 39 Low Density Lipoprotein 97 mg/dL Less Than 100 40 Laboratory test finding 08/23/2002 Glucose 1 HR Post Prandial 125 mg/dL 70-160 1 SEE RESULT BELOW Name: PARISA JEFFREY Ruben : [address]: Cori Alvarez MD Acct: [id number] Unit: [id number] AGE: 46 Location: [facility] Re10/12/16 SEX: F Status: REG REF SPEC: [id number] LUCIAN: 10/12/16-1124 [facility] DR: Cori Alvarez MD REQ: [id number] RECD: 10/12/16 STATUS: SOUT _ ORDERED: TP IMAGE ANAL, HPV/Thin Prep COMMENTS: [id number] FINAL DIAGNOSIS Negative for Intraepithelial lesion or Malignancy A. Ectocervical/Endocervical Specimen Adequacy: Satisfactory of evaluation Transformation zone component identified Patient Information: HPV: High risk HPV RNA testing regardless of pap results. Actual Specimen Date: 10/12/16 Last Menstrual Date: 10/03/16 Date of Last Specimen: 03/17/15 Date Time Test Result Flag (u) Normal Range 10/12/16 1124 HPV RNA Negative Negative The high-risk HPV types detected by the assay include: 16, 18, 31, 33, 35, 39, 45, 51, 52, 56, 58, 59, 66, and 68. Signed (signature on file) LLOYD Gordon (ASCP) 10/13 1310 This Pap test was evaluated with the assistance of the Powerset Test Imaging System. Due to cytologic findings at the outsole tacker microscope, comprehensive manual rescreening by a Tong Carrier may be required. The Pap Smear is a screening test designed to aid in the detection of premalignant and malignant conditions of the uterine cervix. It is not a diagnostic procedure and should not be used as the sole means of detecting cervical cancer. Both false- positive and false- negative reports do occur. Depending on your risk status, a Pap smear should be obtained and evaluated every 1-3 years. END OF REPORT * ML=Testing performed at Main Lab DEPARTMENT OF PATHOLOGY, [address] [place] [address] Rudy Sharp M.D. Director [facility] # [id number] 2 The high-risk HPV types detected by the assay include: 16, 18, 31, 33, 35, 39, 45, 51, 52, 56, 58, 59, 66, and 68. 3 SEE RESULT BELOW Name: PARISA JEFFREY Ruben : [address]: Cori Alvarez MD Acct: [id number] Unit: [id number] AGE: 44 Location: [facility] Re03/17/15 SEX: F Status: REG REF SPEC: [id number] LUCIAN: 03/17/15 [facility] DR: Cori Alvarez MD REQ: [id number] RECD: 03/17/15 STATUS: SOUT _ ORDERED: IMAGE ANALYSIS, HPV/Thin Prep FINAL DIAGNOSIS Negative for Intraepithelial lesion or Malignancy A. Ectocervical/Endocervical Specimen Adequacy: Satisfactory of evaluation Transformation zone component identified Patient Information: HPV: High risk HPV RNA testing regardless of pap results. Actual Specimen Date: 03/17/15 Last Menstrual Date: 03/04/15 Date of Last Specimen: 10/18/11 Date Time Test Result Flag (u) Normal Range 03/17/15 0933 HPV RNA Negative Negative The high-risk HPV types detected by the assay include: 16, 18, 31, 33, 35, 39, 45, 51, 52, 56, 58, 59, 66, and 68. Signed (signature on file) LLOYD Crook(ASCP) 03/18 1302 This Pap test was evaluated with the assistance of the Powerset Test Imaging System. Due to cytologic findings at the outsole tacker microscope, comprehensive manual rescreening by a Tong Carrier may be required. The Pap Smear is a screening test designed to aid in the detection of premalignant and malignant conditions of the uterine cervix. It is not a diagnostic procedure and should not be used as the sole means of detecting cervical cancer. Both false- positive and false- negative reports do occur. Depending on your risk status, a Pap smear should be obtained and evaluated every 1-3 years. END OF REPORT * ML=Testing performed at Main Lab DEPARTMENT OF PATHOLOGY, [address] [place] [address] Rudy Sharp M.D. Director [facility] # [id number] 4 The high-risk HPV types detected by the assay include: 16, 18, 31, 33, 35, 39, 45, 51, 52, 56, 58, 59, 66, and 68. 5 --- RUN DATE: 10/19/11 [facility] NMI LIVE PAGE 1 RUN TIME: 1419 Specimen Inquiry RUN USER: INTERFACE -- Name: PARISA JEFFREY Ruben Status: REG REF Re10/18/11 Age/Sex: 41/F Unit#: [id number] Location: [facility] : 74 -- Specimen: [id number] SOUT Spec Date:10/18/[address]: Nimisha juarez CNM Spec Type: CYTOLOGY Received:10/19/11 Copies to: SOURCE ECTOCERVICAL/ENDOCERVICAL Thin Prep with Reflex HPV Test PATIENT INFORMATION ACTUAL COLLECTION DATE: 10/18/11 ? No POST MENOPAUSAL? No LAST MENSTRUAL PERIOD: 10/07/11 DATE OF PRIOR SPECIMEN: 01/21/10 ADEQUACY OF SPECIMEN Satisfactory for evaluation * Transformation zone component identified * DIAGNOSIS NEGATIVE FOR INTRAEPITHELIAL LESION OR MALIGNANCY * This Pap test was evaluated with the assistance of the ThinPrep Pap Test Imaging System. The Pap Smear is a screening test designed to aid in the detection of premalign ant and malignant conditions of the uterine cervix. It is not a diagnostic procedure a nd should not be used as the sole means of detecting cervical cancer. Both false- positiv e and false-negative reports do occur. Depending on your risk status, a Pap smear meghan uld be obtained and evaluated every one to three years. Initial evaluation performed by Maribell BLANCO([facility]) 10/19/11 Final Interpretation electronically signed by: Maribell BLANCO([facility]) 10/19/11 1417 -- -- DEPARTMENT OF PATHOLOGY, [address] [place] [address] [facility] Permit #[id number] Rudy Sharp M.D. Director Sera Gan M.D. Ceramics Test Engineer Dir juan -- 6 Specimen Description: VAG/REC 7 FINAL: NEGATIVE FOR GROUP B STREPTOCOCCUS 8 FINAL: NO GROWTH DAY 2 (<1,000 CFU/mL) 9 Specimen Description: VAGINAL 10 M^MANY^QTY 11 F^FEW^QTY 12 Warning: A positive result is not useful for establishing a diagnosis of syphilis. In most situations, such a result may reflect a prior treated infection; a negative result can exclude a diagnosis of syphilis except for incubating or early primary disease. 13 Imm. NE 1 14 FINAL INTERPRETATION: No HIV antibody is detected. . This information has been disclosed to you from confidential records which are protected by [place] State law. State law prohibits you from making further disclosure of this information without the specific written consent of the person to whom it pertains, or as otherwise permitted by law. Any unauthorized further disclosure in violation of state law may result in a fine or senior living sentence or both. General authorization for the release of medical or other information is not, except in limited circumstances set forth in Part 63, Title 10, of [facility], sufficient authorization for further disclosure. Disclosure of confidential HIV information that occurs as the result of a general authorization for the release of medical or other information will be in violation of the state law and may result in a fine or a senior living sentence. . 15 NEGATIVE FOR CHLAMYDIA TRACHOMATIS rRNA A negative result does not preclude the presence of a C.trachomatis or N.gonorrhoeae infection because results are dependent on adequate specimen collection, absence of inhibitors, and sufficient rRNA to be detected. Test results may be affected by improper specimen collection, improper specimen storage, technical error, or specimen mixup. 16 ---- RUN DATE: 01/22/10 [facility] NMI LIVE PAGE 1 RUN TIME: 1444 Specimen Inquiry RUN USER: INTERFACE -- Name: PARISA JEFFREY Status: REG REF Re01/21/10 Age/Sex: 39/F Unit#: [id number] Location: [facility] : 74 -- Specimen: [id number] [place] Spec Date: 01/21/[address]: Lucita montano NP Spec Type: CYTOLOGY Received: 01/22/10-2545 Copies to: SOURCE ECTOCERVICAL/ENDOCERVICAL Thin Prep with Reflex HPV Test PATIENT INFORMATION ACTUAL COLLECTION DATE: 01/21/10 ? Yes PREVIOUS ABNORMAL PAP SMEARS No LAST MENSTRUAL PERIOD: 11/01/09 DATE OF PRIOR SPECIMEN: 12/16/08 ADEQUACY OF SPECIMEN Satisfactory for evaluation * Transformation zone component identified * DIAGNOSIS NEGATIVE FOR INTRAEPITHELIAL LESION OR MALIGNANCY * This Pap test was evaluated with the assistance of the ThinPrep Pap Test Imaging System. The Pap Smear is a screening test designed to aid in the detection of premalign ant and malignant conditions of the uterine cervix. It is not a diagnostic procedure a nd should not be used as the sole means of detecting cervical cancer. Both false- positiv e and false-negative reports do occur. Depending on your risk status, a Pap smear meghan uld be obtained and evaluated every one to three years. Final Interpretation electronically signed by: Wade VANEGAS(ASCP) 01/22/10 144 4 -- -- DEPARTMENT OF PATHOLOGY, [address] [place] [address] [facility] Permit #[id number] Dayana Murray M.D. Ceramics Test Engineer Dir juan -- 17 NEGATIVE FOR NEISSERIA GONORRHOEAE rRNA A negative result does not preclude the presence of a C.trachomatis or N.gonorrhoeae infection because results are dependent on adequate specimen collection, absence of inhibitors, and sufficient rRNA to be detected. Test results may be affected by improper specimen collection, improper specimen storage, technical error, or specimen mixup. 18 SCANT NORMAL URETHRAL OR PERINEAL CORY 19 SCANT NORMAL URETHRAL OR PERINEAL CORY 20 ---- RUN DATE: 12/17/08 [facility] NMI LIVE PAGE 1 RUN TIME: 1146 Specimen Inquiry RUN USER: INTERFACE -- Name: PARISA JEFFREY Status: REG REF Re12/16/08 Age/Sex: 38/F Unit#: [id number] Location: [facility] : 74 -- Specimen: [id number] SOUT Spec Date: 12/16/[address]: Lashawn henry NP Spec Type: CYTOLOGY Received: 12/17/08 Copies to: SOURCE ECTOCERVICAL/ENDOCERVICAL Thin Prep with Reflex HPV Test PATIENT INFORMATION ACTUAL COLLECTION DATE: 12/16/08 ? No DATE OF PRIOR SPECIMEN: 08/17/07 PATIENT HISTORY: Last menstrual period not given. ADEQUACY OF SPECIMEN Satisfactory for evaluation * Transformation zone component identified * DIAGNOSIS NEGATIVE FOR INTRAEPITHELIAL LESION OR MALIGNANCY * This Pap test was evaluated with the assistance of the RedLassoPrep Pap Test Imaging System. The Pap Smear is a screening test designed to aid in the detection of premalign ant and malignant conditions of the uterine cervix. It is not a diagnostic procedure a nd should not be used as the sole means of detecting cervical cancer. Both false- positiv e and false-negative reports do occur. Depending on your risk status, a Pap smear meghan uld be obtained and evaluated every one to three years. Initial evaluation performed by Maribell BLANCO([facility]) 12/17/08 Final Interpretation electronically signed by: Maribell BLANCO([facility]) 12/17/08 1145 -- -- DEPARTMENT OF PATHOLOGY, [address] [place] [address] [facility] Permit #[id number] Rudy Sharp M.D. Director Sera Gan M.D. Ceramics Test Engineer Dir juan -- 21 FINAL: NEGATIVE FOR GROUP B STREPTOCOCCUS 22 *PATIENT'S BLOOD CONTAINS ATYPICAL ANTIBODIES. ADDITIONAL UNITS OF COMPATIBLE BLOOD CANNOT BE AVAILABLE IN AN EMERGENCY* 23 PROBABLY DUE TO CIRCULATING RHOGAM GIVEN IF A TITER IS DESIRED, PLEASE NOTIFY THE BLOOD BANK WITHIN 14 DAYS OF THE SPECIMEN COLLECTION DATE. . 24 DIRECT ELIZABETH INTERPRETATION: RESULT: INTERPRETATION: WEAKLY POSITIVE POSITIVE 1+ POSITIVE 2+ POSITIVE 3+ POSITIVE 4+ POSITIVE 25 THE PERFORMANCE CHARACTERISTICS OF THIS ASSAY HAVE BEEN DETERMINED BY [facility]. PERFORMANCE CHARACTERISTICS REFER TO THE ANALYTICAL PERFORMANCE OF THE TEST USING LIQUID BASED CYTOLOGY SAMPLES. 26 A NON-SPECIFIC TEST WAS ORDERED AND THE ABOVE ASSAY WAS PERFORMED. IF THIS IS NOT WHAT YOU INTENDED TO ORDER, PLEASE CONTACT YOUR LOCAL BRAIN PICKER IMMEDIATELY AT SO THAT WE CAN ADJUST OUR BILLING APPROPRIATELY. YOU MAY ALSO INQUIRE ABOUT ALTERNATIVE OR ADDITIONAL TESTING. THE PERFORMANCE CHARACTERISTICS OF THIS ASSAY HAVE BEEN DETERMINED BY [facility]. PERFORMANCE CHARACTERISTICS REFER TO THE ANALYTICAL PERFORMANCE OF THE TEST USING LIQUID BASED CYTOLOGY SAMPLES. 27 SPECIMEN CONTAINS NORMAL URETHRAL OR PERINEAL CORY AND DOES NOT SUGGEST URINARY TRACT INFECTION 28 FINAL INTERPRETATION: No HIV antibody is detected. . This information has been disclosed to you from confidential records which are protected by [place] State law. State law prohibits you from making further disclosure of this information without the specific written consent of the person to whom it pertains, or as otherwise permitted by law. Any unauthorized further disclosure in violation of state law may result in a fine or senior living sentence or both. General authorization for the release of medical or other information is not, except in limited circumstances set forth in Part 63, Title 10, of [facility], sufficient authorization for further disclosure. Disclosure of confidential HIV information that occurs as the result of a general authorization for the release of medical or other information will be in violation of the state law and may result in a fine or a senior living sentence. . 29 FINAL: NEGATIVE FOR GROUP B STREPTOCOCCUS 30 FINAL: NO GROWTH DAY 2 (<1,000 CFU/mL) 31 FINAL INTERPRETATION: No HIV antibody is detected. . This information has been disclosed to you from confidential records which are protected by [place] State law. State law prohibits you from making further disclosure of this information without the specific written consent of the person to whom it pertains, or as otherwise permitted by law. Any unauthorized further disclosure in violation of state law may result in a fine or senior living sentence or both. General authorization for the release of medical or other information is not, except in limited circumstances set forth in Part 63, Title 10, of [facility], sufficient authorization for further disclosure. Disclosure of confidential HIV information that occurs as the result of a general authorization for the release of medical or other information will be in violation of the state law and may result in a fine or a senior living sentence. . 32 ---- RUN DATE: 10/07/05 [facility] NMI LIVE PAGE 1 RUN TIME: 1410 Specimen Inquiry RUN USER: INTERFACE [id number] PARISA JEFFREY 35/F <REG REF 10/04> ([id number]) Helen Reyes -- Specimen: [id number] SOUT Spec Date: 10/04/[address]: Edwardo Devries CNM. Spec Type: CYTOLOGY Received: 10/06/05-1439 Copies to: SOURCE ECTOCERVICAL/ENDOCERVICAL Thin Prep with Reflex HPV Test PATIENT INFORMATION ACTUAL COLLECTION DATE: 10/04/05 ? YES LAST MENSTRUAL PERIOD: 07/11/05 DATE OF PRIOR SPECIMEN: 04/19/03 PREVIOUS CYTOLOGY/SURGICAL SPECIMEN #: [id number] ADEQUACY OF SPECIMEN Satisfactory for evaluation * Transformation zone component identified * DIAGNOSIS NEGATIVE FOR INTRAEPITHELIAL LESION OR MALIGNANCY * The Pap Smear is a screening test designed to aid in the detection of premalign ant and malignant conditions of the uterine cervix. It is not a diagnostic procedure an d should not be used as the sole means of detecting cervical cancer. Both false-positive and false-negative reports do occur. Depending on your risk status, a Pap smear meghan uld be obtained and evaluated every one to three years. Signed Wade VANEGAS(ASCP) 10/07/05 -- -- DEPARTMENT OF PATHOLOGY, [address] [place] [address] [facility] Permit #[id number] Alejandro Telles II, M.D. Director Dayana Murray D irector -- 33 . A negative result does not preclude the presence of a C.trachomatis or N.gonorrhoeae infection because results are dependent on adequate specimen collection, absence of inhibitors, and sufficient rRNA to be detected. Test results may be affected by improper specimen collection, improper specimen storage, technical error, or specimen mixup. . 34 . A negative result does not preclude the presence of a C.trachomatis or N.gonorrhoeae infection because results are dependent on adequate specimen collection, absence of inhibitors, and sufficient rRNA to be detected. Test results may be affected by improper specimen collection, improper specimen storage, technical error, or specimen mixup. . 35 Anion gap measurement may be of limited value in the presence of any alkalosis, especially in a combined acid base disorder. . 36 NORMAL RANGE MALES 1 - 20 NORMALLY MENSTRUATING FEMALES - Follicular Phase 3 - 9 - Mid-Cycle Peak 4 - 23 - Luteal Phase 1 - 6 POSTMENOPAUSAL FEMALES 16 - 114 . 37 NORMAL RANGE MALES 2 - 12 NORMALLY MENSTRUATING FEMALES - Follicular Phase 1 - 18 - Mid-Cycle Peak 24 - 105 - Luteal Phase 0.6 - 20 POSTMENOPAUSAL FEMALES 15 - 62 . 38 Classification: Desirable . 39 Classification: High . 40 CALCULATED LDL APPROXIMATES THE VALUE OF A DIRECT LDL MEASUREMENT. Classification: Optimal Level . Procedures Date CPT Code Description Status 06/07/2016 Mammogram Completed 02/07/2015 Colonoscopy Completed 06/04/2013 93517 Echography Transvaginal Completed 04/23/2013 86213 Echography Transvaginal Completed 02/14/2013 26271 Echography Transvaginal Completed 08/13/2010 90712 Obstetric Care Routine Completed 08/13/2010 49443 Obstetric Care Routine Completed 08/13/2010 29568 Obstetric Care Routine Completed 08/12/2010 51383 Echography Uterus Limited Completed 08/12/2010 74944 Non-Stress Test Completed 05/20/2010 78553 Injection Intramuscular Or Subcutaneous Completed 03/25/2010 20110 Echography Uterus Complete Completed 03/06/2010 95163 Amniocentesis Completed 03/06/2010 70238 Amniocentesis W/ Ultrasound Guidance Completed 03/06/2010 40933 Ultrasound Guide For Amniocentesis (Si) Completed 03/06/2010 17958 Ultrasound Guide For Amniocentesis (Si) Completed 01/21/2010 41175 Nuchal Translucency Ultrasound /First Completed Gestation 12/16/2009 44679 OB Ultrasound First Trimester Completed 03/31/2008 66323 Obstetric Care Routine Completed 01/16/2008 51574 Echography Uterus Follow-Up Or Repeat Completed 01/03/2008 06906 Injection Intramuscular Or Subcutaneous Completed 09/01/2007 48081 OB Ultrasound First Trimester Completed 09/01/2007 68998 OB Ultrasound First Trimester Completed 08/07/2007 97591 OB Ultrasound First Trimester Completed 08/07/2007 52430 OB Ultrasound First Trimester Completed 07/27/2007 72465 OB Ultrasound First Trimester Completed 07/27/2007 19006 OB Ultrasound First Trimester Completed 04/22/2006 11282 Obstetric Care Routine Completed 11/29/2005 86088 Echography Uterus Complete Completed 11/01/2005 61309 Care Completed 02/22/2004 62123 Sperm Washing For Artificial Insemination Completed 02/22/2004 57337 Artificial Insemination Intra-Uterine Completed 02/19/2004 40907 Echography Pelvic Limited Or Follow-Up Completed 02/14/2004 91833 Echography Uterus Limited Completed 02/11/2004 23457 Echography Transvaginal Completed 01/13/2004 35094 Echography Pelvic Limited Or Follow-Up Completed 01/10/2004 26230 Echography Pelvic Limited Or Follow-Up Completed 12/09/2003 86204 Echography Pelvic Limited Or Follow-Up Completed 12/05/2003 66106 Echography Transvaginal Completed 12/24/2002 62595 Care Only Completed 11/20/2002 29412 Obstetric Care Routine Completed 11/18/2002 46443 Care Completed 11/09/2002 84954 Care Completed 11/02/2002 13839 Care Completed 10/26/2002 03129 Care Completed 10/19/2002 13874 Care Completed 10/05/2002 81490 Care Completed 09/21/2002 70285 Care Completed 09/11/2002 21955 Injection Subcutaneous Or Intramuscular Completed Encounters Type Date Location Provider CPT E/M Dx Office Visit 04/05/2017 9:45a [place] [address] N83.202 Office Visit 10/12/2016 10:30a [place] [address] Z01.419 Office Visit 06/30/2015 3:30p [place] [address] N83.29 Office Visit 03/17/2015 9:30a [place] [address] Z01.419 Office Visit 06/04/2013 11:00a [place] [address] 620.2 Office Visit 04/23/2013 1:30p [place] [address] 620.2 Office Visit 02/14/2013 9:30a [place] [address] 620.2 Office Visit 01/03/2013 1:00p [place] [address] 620.2 626.8 Office Visit 08/16/2012 8:40a [facility] ARVIN Law 97911 V25.40 626.4 Office Visit 10/18/2011 1:00p [facility] [place] [address] V72.31 V76.2 V76.19 626.8 V77.91 V77.1 V77.0 Office Visit 12/16/2009 1:20p [facility] Office Lucita Alvarez, [facility] 27277 V72.40 Office Visit 11/14/2009 11:00a [facility] Office Doreen Harris M.D. 04529 599.0 789.09 Office Visit 12/16/2008 9:40a [facility] [place] [address] V72.31 V76.2 V25.41 Office Visit 07/27/2007 12:00p [facility] Lisette Hernandez, CNM 7[address] 640.83 Office Visit 01/07/2006 1:40p [place] [address] 698.9 Office Visit 09/23/2003 10:45a [facility] Amy Busch ANP-C 42872 V26.4 V72.4 Office Visit 09/09/2003 11:15a [facility] Office Amy Busch ANP-C 64491 V26.4 V72.4 Office Visit 07/23/2003 11:45a [facility] Amy Busch ANP-C 26447 628.9 V72.4 Office Visit 07/09/2003 10:45a [facility] Office Amy Busch ANP-C 54055 628.9 Plan of Care Future Appointment(s):08/03/2017 8:30 am - Ultrasounds at [facility]2017 9:00 am - Cori Alvarez MD at [facility]08/16/2012 - Cata Mckeon, CNMV25.40 Contraceptive Sureveillance UnspecComments: has vasectomy.626.4 Irregular Menstrual CycleComments:Reviewed bleeding irregularity poss. perimenopausal hormone effects. Reviewed past PAP HX WNL. Reviewed pelvic sono, endometrial biopsy and MD consult recommended for further evaluation. Pt. currently undecided. Pt. due for annual exam 10/20, will plan to call to schedule.
[2017-04-11 09:58] VITALS: BP 102/66
--- NOTE | 2017-04-11 10:38 | UC ---
FLU HPI - HPI Summary HPI Summary: Pt c/o sudden onset of fever, nasal congestion, chills, body aches, sore throat X 3 days. - History of Current Complaint Chief Complaint: UCRespiratory Stated Complaint: BODY ACHES FEVER Time Seen by Provider: 04/11/17 10:12 Hx Obtained From: Patient Hx Last Menstrual Period: THIS WEEK ?: No Onset/Duration: Sudden Onset, Lasting Days, Still Present Severity Currently: Mild Severity Initially: Moderate Pain Intensity: 0 Associated Signs & Symptoms: Positive: Fever, Myalgia, Cough, Sore Throat, Nasal Congestion, Headache Related Hx: Possible Flu/Infectious Exposure - Risk Factors Influenza Risk Factors: Negative - Allergy/Home Medications Allergies/Adverse Reactions: Allergies Allergy/AdvReac Type Severity Reaction Status Date / Time morphine Allergy Nausea And Verified 04/11/17 09:48 Vomiting PMH/Surg Hx/FS Hx/Imm Hx Previously Healthy: Yes Respiratory History: Asthma - Surgical History Surgical History: Yes Surgery Procedure, Year, and Place: RT OOPHERECTOMY. BOWEL RESECTION w/ ilectomy 09/2012, reversal 12/2012 , [facility]. microdiscectomy 01/17/2014 - Family History Known Family History: Positive: None, Other - father of pancreatic cancer Mother living and healthy Negative: Respiratory Disease Family History: Pancreatic cancer - Social History Occupation: Employed Full-time Lives: With Family Alcohol Use: Rare Substance Use Type: None Smoking Status (MU): Former Smoker Type: Cigarettes Amount Used/How Often: 1/2 PACK PER DAY Length of Time of Smoking/Using Tobacco: 5 YEARS Have You Smoked in the Last Year: No When Did the Patient Quit Smoking/Using Tobacco: 1994 - Immunization History Most Recent Influenza Vaccination: 2017 Most Recent Tetanus Shot: unknown Most Recent Pneumonia Vaccination: unknown Vaccination Up to Date: Yes Review of Systems Constitutional: Fever, Chills, Fatigue Skin: Negative Eyes: Negative ENT: Sore Throat, Sinus Congestion Respiratory: Cough Cardiovascular: Negative Gastrointestinal: Nausea Genitourinary: Negative Motor: Negative Neurovascular: Negative Musculoskeletal: Negative Neurological: Headache Psychological: Negative Is Patient Immunocompromised?: No All Other Systems Reviewed And Are Negative: Yes Physical Exam Triage Information Reviewed: Yes Appearance: Ill-Appearing Vital Signs: Initial Vital Signs Temp 98.1 F 04/11/17 09:51 Pulse 64 04/11/17 09:51 Resp 18 04/11/17 09:51 BP 102/66 04/11/17 09:51 Pulse Ox 100 04/11/17 09:51 Vital Signs Reviewed: Yes Eye Exam: Normal ENT Exam: Other ENT: Positive: Pharyngeal erythema, Nasal congestion Dental Exam: Normal Neck exam: Normal Respiratory Exam: Normal Cardiovascular Exam: Normal Musculoskeletal Exam: Normal Neurological Exam: Normal Psychological Exam: Normal Skin Exam: Normal Flu Course/Dx - Differential Dx/Diagnosis Differential Diagnosis/HQI/PQRI: Influenza, Upper Respiratory Infection Provider Diagnoses: viral syndrome Discharge - Discharge Plan Condition: Stable Disposition: HOME Patient Education Materials: Viral Syndrome (ED) Forms: *Work Release Referrals: Yasmani Mathias DO [Primary Care Provider] - If Needed Additional Instructions: Please follow up with your PCP or return to clinic as needed.
== END 2017-04-11 10:43 | disposition home or self-care (01) ==
LOC: UCCORT 08:51
DX: B34.9 Viral infection, unspecified (principal); Z88.5 Allergy status to narcotic agent; Z87.891 Personal history of nicotine dependence
CPT/HCPCS: 87502; 99211; G0463

== ENCOUNTER 2018-07-11 21:37 | Emergency (ER) | payer BC ==
[2018-07-11 21:53] VITALS: BP 104/70
--- OUTSIDE RECORDS SUMMARY | 2018-07-11 22:03 | XMS REPORT | Continuity of Care Document ---
:1970 External Reference #:[id number] Author Name Lucia Mcdaniels Care Team Providers Name Role Phone Yasmani Mathias DO Primary Care Physician Unavailable Payers Date Identification Numbers Payment Provider Subscriber Expires: 2014 Policy Number: [id number] BS Facets Harrison Chang PayID: [id number] [place] [address] Effective: 2014 Policy Number: [id number] [employer] Parisa Chang PayID: [id number] [place] [address] Advance Directives Description No Information Available Problems Active Problems Provider Date Localized swelling, mass and lump, trunk Abraham Monterroso M.D. Onset: 2014 Aftercare Following Surgery Of The Abraham Monterroso M.D. Onset: 01/30/2014 Musculoskeletal System, NEC Displacement of lumbar intervertebral disc Abraham Monterroso M.D. 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 [employer] Tobacco Use Start: Unknown End: Former Cigarette Smoker 1 Unknown Pack Daily Cigarette Use Pack Years - 04 Smoking Status Reviewed: 06/19/18 Former Cigarette Smoker 1 Pack Daily ETOH Use Occasionally consumes alcohol Tobacco Use Start: Unknown End: Patient is a former smoker Unknown Recreational Drug Use Denies Drug Use Exercise Type/Frequency Exercises regularly Allergies, Adverse Reactions, Alerts Description No Known Drug Allergies Medications Active Medications SIG Qnty Indications Ordering Date Provider Dulera 2 puff bid Unknown 200-5mcg/Act Aerosol Pulmicort prn Unknown 1mg/2ML Suspension Montelukast Sodium take 1 tablet Unknown 10mg every evening Tablets Albuterol Sulfate inhale 1 vial in Unknown (2.5mg/3ML) nebulizer every 3 0.083% Nebulizer hours if needed Levocetirizine take 1 tablet Unknown Dihydrochloride once daily if 5mg Tablets needed Budesonide inhale 1 vial in Unknown 0.5mg/2ML nebulizer twice a Suspension day and Rinse Mouth After Use Lo Loestrin Fe 1 by mouth every Unknown 1mg-10 mcg / day 10 mcg Tablets History Medications Hydrocodone-Acetaminophen Unknown - 02/26/2014 5-325mg Tablets Immunizations Description No Information Available Vital Signs Date Vital Result Comment 06/19/2018 8:13am Height 64 inches 5'4" Weight 154.00 lb Heart Rate 83 /min BP Systolic 111 mmHg BP Diastolic 74 mmHg O2 % BldC Oximetry 100 % BMI (Body Mass Index) 26.4 kg/m2 06/12/2014 10:59am Height 64 inches 5'4" Weight 128.00 lb Heart Rate 78 /min BP Systolic Sitting 110 mmHg BP Diastolic Sitting 78 mmHg BMI (Body Mass Index) 22.0 kg/m2 02/27/2014 10:04am Height 64 inches 5'4" Weight 127.00 lb Heart Rate 72 /min BP Systolic Sitting 110 mmHg BP Diastolic Sitting 80 mmHg BMI (Body Mass Index) 21.8 kg/m2 01/30/2014 10:00am Height 64 inches 5'4" Heart Rate 82 /min BP Systolic Sitting 127 mmHg BP Diastolic Sitting 70 mmHg 01/07/2014 3:16pm Height 64 inches 5'4" Weight 128.00 lb Heart Rate 78 /min BP Systolic Sitting 102 mmHg BP Diastolic Sitting 60 mmHg Pain Level 4 back & L leg BMI (Body Mass Index) 22.0 kg/m2 Results Test Date Facility Test Result H/L Range Note Laboratory test 06/19/2018 [facility] Vitamin D <pending> finding [address] Total 25(Oh) [place] [address] [phone] CRP High Sensitivity <pending> Erythrocyte Sed Rate <pending> Laboratory test 06/19/2018 [facility] Hemoglobin A1c <pending> finding 101 (Glyco HGB) [place] [address] [phone] Insulin Level <pending> Thyroid Panel 06/19/2018 [facility] Free T4 (Free <pending> 101 Thyroxine) [place] [address] [phone] Thyroxine <pending> TSH (Thyroid Stim Horm) <pending> Laboratory test 06/19/2018 [facility] Thyroglobulin AB <pending > finding [address] [place] [address] [phone] Thyroperoxidase AB <pending> T3 Free <pending> T3 Total <pending> Selenium <pending> Zinc Serum <pending> Copper, Serum <pending> Cytology Non-Workday Senior Associate 03/01/2014 [facility] Clementina RUN DATE: 1 03/01/ <[place] [address] NOTE> [phone] CBC No Diff 01/14/2014 [facility] White Blood 10.8 10^3/uL N 4.8-10. 101 Count 8 [place] [address] [phone] Red Blood Count 4.14 10^6/uL N 4.0-5.4 Hemoglobin 12.9 g/dL N 12.0-16.0 Hematocrit 38 % N 35-47 Mean Corpuscular Volume 92 fL N 80-97 Mean Corpuscular Hemoglobin 31 pg N 27-31 Mean Corpuscular HGB Conc 34 g/dL N 31-36 Red Cell Distribution Width 13 % N 10.5-15 Platelet Count 195 10^3/uL N 150-450 Mean Platelet Volume 10 um3 N 7.4-10.4 Basic Metabolic Panel 01/14/2014 [facility] Sodium 134 mmol/L N 133-[address] [place] [address] [phone] Potassium 3.5 mmol/L N 3.5-5.0 Chloride 102 mmol/L N 101-111 Co2 Carbon Dioxide 24 mmol/L N 22-32 Anion Gap 8 mmol/L N 2-11 Glucose 76 mg/dL N 70-100 Blood Urea Nitrogen 11 mg/dL N 6-24 Creatinine 0.70 mg/dL N 0.51-0.95 BUN/Creatinine Ratio 15.7 N 8-20 Calcium 9.0 mg/dL N 8.6-10.3 Egfr Non- 92.2 N >60 Egfr 118.6 N >60 2 Laboratory test 01/14/2014 [facility] Serum Negative N Negative 3 finding [address] [place], [place] [id number] [phone] 1 RUN DATE: 03/01/14 [facility] LAB LIVE PAGE 1 RUN TIME: [address] [place], [place] [address] Specimen Inquiry Name: PRAISA CHANG : [address]: Abraham Monterroso MD Acct: [id number] Unit: [id number] AGE: 43 Location: LAB Re03/01/14 SEX: F Status: REG REF SPEC: [id number] LUCIAN: 03/01/[address] [facility] DR: Rudy Sharp MD REQ: [id number] RECD: 03/01/14 STATUS: HOLLEY PATEL DR: Abraham Monterroso MD _ ORDERED: FN ASP SUPERFIC, FN ASP PALP, FNA IMMEDIATE S, PATH CONSULT FINAL DIAGNOSIS Chest, fine needle aspiration by palpation: -- Lipoma. COMMENT: The procedure was explained to and understood by the patient. Signed consent was obtained and a time out procedure was performed at the bedside to verify patient identity and biopsy site. Fine needle aspiration biopsy was performed times 1 with a 25 gauge needle on 1.5 cm soft density over costochondral junction of second rib. Adequacy was assessed by fast stain technique. The procedure was tolerated well without complications. CHEST - RIGHT CHEST WALL MASS, FINE NEEDLE ASPIRATION CLINICAL HISTORY 1.5 cm soft density over C/C junction 2nd rib. GROSS DESCRIPTION Fine needle aspiration by palpation x 1 pass with 2 Alcohol fixed slide(s). Signed (signature on file) Ingrid Pickering MD 1410 END OF REPORT * ML=Testing performed at Main Lab DEPARTMENT OF PATHOLOGY, [address] [place] [address] Rudy Sharp M.D. Director [facility] # [id number] 2 Because ethnic data is not always readily available, this report includes an eGFR for both -Americans and non- Americans. The National Kidney Disease Education Program (NKDEP) does not endorse the use of the MDRD equation for patients that are not between the ages of 18 and 70, are , have extremes of body size, muscle mass, or nutritional status, or are non- or non-. According to the National Kidney Foundation, irrespective of diagnosis, the stage of the disease is based on the level of kidney function: Stage Description GFR(mL/min/1.73 m(2)) 1 Kidney damage with normal or decreased GFR 90 2 Kidney damage with mild decrease in GFR 60-89 3 Moderate decrease in GFR 30-59 4 Severe decrease in GFR 15-29 5 Kidney failure <15 (or dialysis) 3 This test detects intact HCG only and is indicated for the early detection of . Procedures Date Code Description Status 01/01/2018 51208 ECHO Transthorasic Realtime 2D W Doppler & Color Flow Completed Hosp 01/01/2018 54104 EKG, Interpretation Only Completed 09/08/2017 36715151 Mammogram Completed 09/25/2015 [id number] Colonoscopy Completed 06/12/2014 15694 FX Distal Finger/Thumb Care Completed 06/12/2014 92036 Closed [place] Phalanx finger/thumb shaft w/o manipulation Completed 01/18/2014 15609 Laminotomy W/Decomp NRV RT,One Interspace,Lumbar Completed Encounters Type Date Location Provider Dx Diagnosis Office Visit 01/01/2018 [facility] M54.5 Low back pain 11:49a Services Of Ayla Deng MD Office Visit 01/01/2018 [facility] Roz 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 Displacement Lumbar W/O Myelopathy Office Visit 12/14/2013 [facility] Abraham A. 562.11 Diverticulitis 4:08p Assoc,mckinley Camejo, Colon W/O Hospitalists [place] Hemorrhage 493.90 Asthma Unspec W/O Status Asthmaticus 722.10 Intervertebral Disc Displacement Lumbar W/O Myelopathy Office Visit 12/13/2013 [facility] Abraham A. 562.11 Diverticulitis Colon 4:08p Assoc,mckinley Camejo, W/O Hemorrhage Hospitalists [place] 493.90 Asthma Unspec W/O Status Asthmaticus 722.10 Intervertebral Disc Displacement Lumbar W/O Myelopathy Plan of Treatment Future Appointment(s):07/28/2018 9:30 am - Whitney Munoz NP at [facility]06/19/2018 - Whitney Munoz NPG89.29 Other chronic painFollow up:follow up in 4 weeksRecommendations:An anti-inflammatory diet can work really for for chronic pain Recommend an Elimination Diet - review the handouts and follow the elimination diet for 30 days removing gluten, sugar, dairy, eggs and alcohol. At the end of 30 days as discussed add one food at a time - use the "Food Reintroduction" sheet and record the food and your symptoms. Example: Day 1 add "eggs" eating multiple times that day and wait 3-4 days before introducing the next food. This is because it can take 3-4 days for a food sensitivity to show up. During the elimination diet it is recommended you keep a food journal of what your eating and how you are feeling. Eating 3 meals a day is important focusing on healthy sources ofprotein and mostly plant based with goal 8-10 servings of vegetables a day. Preparing meals and your week will help you be successful. Making (or buying - Kettle & fire is a good brand) bone broth and drinking this 1-2x a day is very healing for the GI tract and is a good source of protein. Pressure cookers are great kitchen tools and bone broth can be made in 3 hours, but a crock pot could beused which takes about 18-24 hour to make broth Add probiotic Increase fermented foods - sauerkraut, kimchi, kombucha (get the low sugar) - some people do not tolerate fermented foods - and can haveincreased gas and bloating - if this happens remove fermented foods - you may need further GI healing before reintroducing fermented foods. Foods that can negatively impact immune function: Lectins: Lectins are carbohydrate-binding proteins that are present in all foods but can be difficult to digest and increase gut barrier damage. Toxic lectins are found in legumes and grains. Soaking, sprouting, and fermenting decrease lectin content. Phytic Acid: phytic acid is a component of grains, seeds, and legumes that limits the activity of digestive enzymes. This can damage the gut barrier and contribute to dysbiosis. Soaking, sprouting, and fermenting decrease phytic content. Gluten: gluten is a component of many grain products such as wheat, barley and rye. Exposure to gluten can activate zonulin in the intestines and contribute to intestinal permeability. Lactose and Casein: certain componentsof milk can contribute to intestinal permeability, especially if they have gone through traditional pasteurization and homogenization. The negative effects of the resulting protein changes can be decreased, as in the case of grass fed milk from cows. Nightshade: These plants contain an alkaloid that can be detrimental to the intestinal barrier. Nightshades include tomatoes , peppers, and eggplants. These are some of the most inflammatory foods: alcohol, caffeine, sugar, milk/dairy, gluten products, fast food, fried foods, processed meat, corn, trans fats, Nutrient Support for Inflammation: Stanley- 3 fatty acids - EPA/DHA - 2000 mg/day (non GMO, low Mercury fish oil) Turmeric - 1000 mg/day splitin several doses Vitamin C 1000 mg day Zinc 15 mg day N- acetyl cysteine 600 mg twice daily Vitamin D2000 units/day Breakfast/Snack ideas neville seed pudding with almond/cashew or hemp milk (unsweetened), 1 cup milk to 3 tablespoons neville seeds. add vanilla, cinnamon (no sugar), can also add unsweetenedcoconut flakes. Can top with berries, walnuts - high in fiber, protein and low carb. Can be made thenight before. Smoothie: 1 canned coconut milk, cup of greens (kale, spinach), 1/2 avocado, a littlewater/ice, fresh philippe (tablespoon or to taste), fresh or concentrated [place] juice. Intermittent fasting is a great way to support and help aide in weight loss. Time restricted eating (intermittent Fasting) is when you eat between a certain window of time such as: 16/8. 16 hours you fast (overnight) and eat during the day with trying not to eat after 6pm at night. Good Resources Dr. Jarrell Jackson - Ketotarian cookbook [email or web address].[email or web address] - low carb/keto diet website run by a physician great resource!! Dr. Matthew Tran - two books: The [place] protocol and her cookbook: Cooking for Life-L65.9 Nonscarring hair loss, cgmltvreumbX34.3 Premenstrual tension syndromeRecommendations:Consider reading The Period Repair Manual by Jennifer Acevedo ND -J45.998 Other asthmaRecommendations:continue current regimen consider elimination diet - moving to anti- [id number] Body mass index (BMI) 26.0-26.9, adultRecommendations:Start tracking your carbs - goal carbs start 100 with goal 50 Smoothie: Dr. Guillermina Molina - alsohas a great fiber supplement
[2018-07-11] MEDS ORDERED: Cephalexin CAP* 500 MG PO ONE ×2 (22:17→22:18)
--- NOTE | 2018-07-11 22:20 | UC ---
Complaint Female HPI - HPI Summary HPI Summary: 48-year-old female comes in with a chief complaint of burning with urination for 1 day. She's had UTIs in the past that's what this feels like. Denies any flank pain. Did feel slightly ill yesterday. She has been taking Azo which she believes helps with the symptoms. No fever. - History Of Current Complaint Chief Complaint: UCGU Stated Complaint: URINARY Time Seen by Provider: 07/11/18 21:56 Hx Last Menstrual Period: 06/25/18 Pain Intensity: 0 - Allergies/Home Medications Allergies/Adverse Reactions: Allergies Allergy/AdvReac Type Severity Reaction Status Date / Time morphine Allergy Nausea And Verified 07/11/18 21:54 Vomiting PMH/Surg Hx/FS Hx/Imm Hx Previously Healthy: Yes - Surgical History Surgical History: Yes Surgery Procedure, Year, and Place: RT OOPHERECTOMY. BOWEL RESECTION w/ ilectomy 09/2012, reversal 12/2012 , [facility] YORDY. microdiscectomy 01/17/2014 - Family History Known Family History: Positive: None, Other - father of pancreatic cancer; Mother living and healthy Negative: Respiratory Disease Family History: Pancreatic cancer - Social History Alcohol Use: Rare Substance Use Type: None Smoking Status (MU): Former Smoker Type: Cigarettes Amount Used/How Often: 1/2 PACK PER DAY Length of Time of Smoking/Using Tobacco: 5 YEARS Have You Smoked in the Last Year: No When Did the Patient Quit Smoking/Using Tobacco: 1994 - Immunization History Most Recent Influenza Vaccination: 2016 Most Recent Tetanus Shot: unknown Most Recent Pneumonia Vaccination: unknown Vaccination Up to Date: Yes Review of Systems All Other Systems Reviewed And Are Negative: Yes Constitutional: Positive: Negative Skin: Positive: Negative Eyes: Positive: Negative ENT: Positive: Negative Respiratory: Positive: Negative Cardiovascular: Positive: Negative Gastrointestinal: Positive: Negative Genitourinary: Positive: Dysuria Motor: Positive: Negative Neurovascular: Positive: Negative Musculoskeletal: Positive: Negative Neurological: Positive: Negative Psychological: Positive: Negative Is Patient Immunocompromised?: No Physical Exam Triage Information Reviewed: Yes Appearance: Well-Appearing, No Pain Distress, Well-Nourished Vital Signs: Initial Vital Signs Temp 98.2 F 07/11/18 21:49 Pulse 82 07/11/18 21:49 Resp 18 07/11/18 21:49 BP 104/70 07/11/18 21:49 Pulse Ox 97 07/11/18 21:49 Vital Signs Reviewed: Yes Eye Exam: Normal Eyes: Positive: Conjunctiva Clear Neck: Positive: Supple Respiratory: Positive: Lungs clear, Normal breath sounds, No respiratory distress Cardiovascular: Positive: RRR Abdomen Description: Negative: CVA Tenderness (R), CVA Tenderness (L) Musculoskeletal Exam: Normal Musculoskeletal: Positive: Strength Intact, ROM Intact Neurological Exam: Normal Neurological: Positive: Alert, Muscle Tone Normal Psychological Exam: Normal Psychological: Positive: Normal Response To Family, Age Appropriate Behavior Skin Exam: Normal Complaint Female Dx - Differential Dx/Diagnosis Provider Diagnosis: UTI (urinary tract infection) Discharge - Sign-Out/Discharge Documenting (check all that apply): Patient Departure All imaging exams completed and their final reports reviewed: No Studies - Discharge Plan Condition: Stable Disposition: HOME Prescriptions: Cephalexin CAP* [Keflex CAP*] 500 mg PO TID #19 cap Patient Education Materials: Urinary Tract Infection in Women (ED) Referrals: Yasmani Mathias DO [Primary Care Provider] - Additional Instructions: FOLLOW UP WITH YOUR DOCTOR IF NOT COMPLETELY IMPROVED. GET RECHECKED SOONER IF YOUR CONDITION WORSENS OR ANY QUESTIONS OR CONCERNS. - Billing Disposition and Condition Condition: STABLE Disposition: Home
== END 2018-07-11 22:31 | disposition home or self-care (01) ==
LOC: UCCORT 21:37
DX: N39.0 Urinary tract infection, site not specified (principal); Z87.891 Personal history of nicotine dependence
CPT/HCPCS: 81003; 87086; 99212; A9270-GY; G0463

== ENCOUNTER 2019-03-25 18:16 | Emergency (ER) | payer BC ==
[2019-03-25 19:32] VITALS: BP 133/57
--- NOTE | 2019-03-25 19:35 | UC ---
FLU HPI - HPI Summary HPI Summary: fever cough and body aches sudden onset last night - History of Current Complaint Stated Complaint: FEVER,BODY ACHES,COUGH Time Seen by Provider: 03/25/19 19:28 Hx Obtained From: Patient Hx Last Menstrual Period: 06/25/18 ?: No Onset/Duration: Sudden Onset, Lasting Days - 1 Severity Currently: Moderate Severity Initially: Moderate Associated Signs & Symptoms: Positive: Fever, Myalgia, Cough, Headache Related Hx: Possible Flu/Infectious Exposure - Allergy/Home Medications Allergies/Adverse Reactions: Allergies Allergy/AdvReac Type Severity Reaction Status Date / Time morphine Allergy Nausea And Verified 03/25/19 19:32 Vomiting Home Medications: Home Medications Norethindr/Eth Estradiol(Nf) [Lo Loestrin Fe (NF)] 1 mg PO DAILY 12/31/17 [ History Confirmed 03/25/19] Polyethylene Glycol 3350* [Miralax (17 GM DOSE TANVI)] 17 gm PO DAILY PRN [History Confirmed 03/25/19] Acetaminophen [Mapap] 1,000 mg PO ONCE 03/25/19 [History Confirmed 03/25/19] Ibuprofen TAB* [Motrin TAB* 800 MG] 600 mg PO Q6H PRN 03/25/19 [History Confirmed 03/25/19] Oseltamivir CAP* [Tamiflu CAP*] 75 mg PO BID #9 cap 03/25/19 [Rx] PMH/Surg Hx/FS Hx/Imm Hx Previously Healthy: Yes - Surgical History Surgical History: Yes Surgery Procedure, Year, and Place: RT OOPHERECTOMY. BOWEL RESECTION w/ ilectomy 09/2012, reversal 12/2012 , LAP YORDY. microdiscectomy 01/17/2014 - Family History Known Family History: Positive: None, Other - father of pancreatic cancer; Mother living and healthy Negative: Respiratory Disease Family History: Pancreatic cancer - Social History Occupation: Employed Full-time Lives: With Family Alcohol Use: Rare Substance Use Type: None Smoking Status (MU): Former Smoker Type: Cigarettes Amount Used/How Often: 1/2 PACK PER DAY Length of Time of Smoking/Using Tobacco: 5 YEARS Have You Smoked in the Last Year: No When Did the Patient Quit Smoking/Using Tobacco: 1994 - Immunization History Most Recent Influenza Vaccination: 2017 Most Recent Tetanus Shot: unknown Most Recent Pneumonia Vaccination: unknown Vaccination Up to Date: Yes Review of Systems All Other Systems Reviewed And Are Negative: Yes Constitutional: Positive: Fever Skin: Positive: Negative Eyes: Positive: Negative ENT: Positive: Sore Throat Respiratory: Positive: Cough Cardiovascular: Positive: Negative Gastrointestinal: Positive: Negative Genitourinary: Positive: Negative Motor: Positive: Negative Musculoskeletal: Positive: Arthralgia, Myalgia Neurological/Mental Status: Positive: Headache Psychological: Positive: Negative Is Patient Immunocompromised?: No Physical Exam Triage Information Reviewed: Yes Appearance: Well-Nourished, Ill-Appearing, Pain Distress Vital Signs Reviewed: Yes Eye Exam: Normal Eyes: Positive: Conjunctiva Clear ENT Exam: Normal ENT: Positive: Normal ENT inspection, Hearing grossly normal, Pharynx normal, Nasal congestion, TMs normal, Uvula midline. Negative: Trismus, Muffled voice, Hoarse voice, Dental tenderness, Sinus tenderness Dental Exam: Normal Neck exam: Normal Neck: Positive: Supple, Nontender, No Lymphadenopathy Respiratory Exam: Normal Respiratory: Positive: Chest non-tender, Lungs clear, Normal breath sounds, No respiratory distress, No accessory muscle use Cardiovascular Exam: Normal Cardiovascular: Positive: RRR, No Murmur, Pulses Normal, Brisk Capillary Refill Musculoskeletal Exam: Normal Musculoskeletal: Positive: Strength Intact, ROM Intact, No Edema Neurological Exam: Normal Neurological: Positive: Alert, Muscle Tone Normal Psychological Exam: Normal Skin Exam: Normal Diagnostics - Laboratory Lab Results: influenza A + Flu Course/Dx - Course Course Of Treatment: rest increase fluids tylenol ibuprofen tamiflu, nebs prn follow with pcp as needed 1 week out of work - Differential Dx/Diagnosis Provider Diagnosis: Influenza A Discharge ED - Sign-Out/Discharge Documenting (check all that apply): Patient Departure All imaging exams completed and their final reports reviewed: No Studies - Discharge Plan Condition: Stable Disposition: HOME Prescriptions: Oseltamivir CAP* [Tamiflu CAP*] 75 mg PO BID #9 cap Patient Education Materials: Influenza (ED) Forms: *Work Release Referrals: Yasmani Mathias DO [Primary Care Provider] - If Needed - Billing Disposition and Condition Condition: STABLE Disposition: Home - Attestation Statements Provider Attestation: This patient was not seen by me. I was available for consult. Chart reviewed. LAURYN
[2019-03-25 19:44] LABS: Influenza A Molecular POSITIVE (Negative)
[2019-03-25] MEDS ORDERED: Oseltamivir CAP* 75 MG CAP PO ONE (19:49)
== END 2019-03-25 20:02 | disposition home or self-care (01) ==
LOC: UCCORT 18:16
DX: J10.1 Influenza due to other identified influenza virus with other respiratory manifestations (principal); Z88.5 Allergy status to narcotic agent; Z87.891 Personal history of nicotine dependence
CPT/HCPCS: 99212; A9270-GY; G0463